=== PATIENT | female | born 1950 | race Caucasian/White ===

== ENCOUNTER → 2017-01-12 | Outpatient (CLI) | payer OTHER ==
[~2017-01-12] MED LIST: ATOR40TA16 PO; LISI10TA PO; LISI10TA3 PO; SITA1TAB2 PO; VITA100036 PO
[2017-01-12 09:16] LABS: BLOOD, URINE NEG (NEG); COMMENT (UR) CATH-CULT NOT IND; CULTURE IF INDICATED CATH CULTURE NOT IND; GLUCOSE,URINE NEG (NEG); HYALINE CAST, URINE 1 /lpf (RARE); KETONE, URINE NEG (NEG); MUCUS URINE FEW /lpf (OCC); NITRITE,URINE NEG (NEG); PH, URINE 5.5 (5.0-8.5); SQUAMOUS EPITHELIAL CELL URINE 1 /hpf (0-5); URINE COLOR YELLOW (YELLW/STRAW)
[2017-01-12 09:18] LABS: HEMATOCRIT 39.1 % (35.0-46.0); MEAN CELL VOLUME 86.6 FL (80.0-100.0); MEAN CORPUSCULAR HEMOGLOBIN 29.1 PG (27.0-34.0); MEAN CORPUSCULAR HGB CONC 33.6 % (32.0-36.0); PLATELET COUNT 256 TH/MM3 (150-450); RED BLOOD COUNT 4.51 MIL/MM3 (4.00-5.30); RED CELL DISTRIBUTION WIDTH 15.2 % (11.6-17.2); REVIEW FLAG FINAL; WHITE BLOOD COUNT 5.7 TH/MM3 (4.0-11.0)
[2017-01-12 09:19] LABS: APTT (PATIENT) 30.4 SEC (24.3-30.1); INTERNATIONAL NORMALIZED RATIO 0.9 RATIO; PROTHROMBIN TIME - PATIENT 10.4 SEC (9.8-11.6)
[2017-01-12 09:39] LABS: BICARBONATE 27.6 MEQ/L (21.0-32.0); POTASSIUM 3.5 MEQ/L (3.5-5.1)
--- NOTE | 2017-01-12 13:43 | EKG ---
Date Performed: 01/12/2017 Time Performed: 08:24:22 PTAGE: 66 years EKG: Baseline artifact present Sinus rhythm MARKED LEFT AXIS DEVIATION possible SEPTAL MYOCARDIAL INFARCTION, OF INDETERMINATE AGE ABNORMAL ECG NO PREVIOUS TRACING DOCTOR: Chintan Ferguson Interpretating Date/Time 01/12/2017 13:41:14
== END ==
LOC: CPRE 07:59
PROVIDERS: ATTEND Orthopaedic Surgery
DX: Z01.810 Encounter for preprocedural cardiovascular examination (principal); Z01.812 Encounter for preprocedural laboratory examination; M16.11 Unilateral primary osteoarthritis, right hip; M79.609 Pain in unspecified limb; R94.31 Abnormal electrocardiogram [ECG] [EKG]
CPT/HCPCS: 36415; 80048; 81001; 85027; 85610; 85730; 93005

== ENCOUNTER 2017-03-15 11:29 | Observation (INO) | payer OTHER ==
[~2017-03-15 11:29] MED LIST changes: +CHOL10008 PO; +FLUC200T2 PO; -LISI10TA3 PO; +PRIL20TA2 PO; -VITA100036 PO
[2017-03-15 15:03] VITALS: BP 155/84; PULSE 61; RESP 16; TEMP 97.7; O2SAT 98
[2017-03-15 16:20] VITALS: PULSE 71
--- NOTE | 2017-03-15 16:47 | HHI.HP ---
HPI Primary Care Physician No Primary Care Physician Chief Complaint Chest pain History of Present Illness This is a 66-year-old female that presents to ED in [place] to evaluate a chest discomfort. Patient states that she had been recently diagnosed with H. pylori after having a 53 pound weight loss over the last 5-6 months. She had an endoscopy last month after completing treatment for H. pylori. She was found to have a fungal infection in the esophagus and placed on fluconazole. States she has 4 days left of that treatment. She states that for several weeks it feels as if food would get stock when she was swallowing. More recently she has gone to eating soft foods and even that seems to get stuck. States she has to drink a lot of water to get the food to go down. She states she has sensation of food being stuck even when she has not eaten. States she has been burping a lot, belching a lot, and gags a lot for no apparent reason. However over the last 4 nights she had new symptoms. She states that for the last 4 nights at approximately 6:00 in the evening she would develop a tightness in the center of her chest. This would last 1 hour to 1-1/2 hours. Maybe a little short of breath and maybe a little nausea. No emesis. No diaphoresis. States that nothing to do with congestion. She had not eaten prior to this discomfort occurring. However it also felt as if she had food stuck. Her account services manager is Dr. Costa in [place]. Review of Systems General: Patient denies fevers, chills recent, and recent travel HEENT: Patient denies headache, sore throat, difficulty swallowing. Cardiovascular: Has the chest discomfort as mentioned above. Denies sensation of heart beating rapidly or irregularly. No syncope. Denies diaphoresis. Respiratory: Mild SOB. Denies inspirational chest discomfort. Denies coughing wheezing or hemoptysis. GI: Mild nausea. Patient denies vomiting, diarrhea, abdominal pain, bloody stools. Feels as if food gets stuck in her throat. Musculoskeletal: Patient denies joint pain or edema. Denies calf pain or edema. Neurovascular: Patient denies numbness, tingling, weakness in extremities. Denies headache. Endocrine: Denies polyuria and polydipsia. Hematologic: Denies easy bruising. Skin: Denies rash or itching. Past Family Social History Allergies: Coded Allergies: erythromycin base (Verified Allergy, Severe, THROAT CLOSES, 03/15/17) No Known Allergies (Unverified Adverse Reaction, Unknown, 03/15/17) Past Medical History Recently diagnosed with H. pylori and candidiasis of the esophagus. Also esophageal stricture. Diabetes and hypertension hour she states that medications were stopped about a week ago by PCP saying he does not think she needs any longer. Denies hyperlipidemia and CAD. Past Surgical History Recent endoscopy. Reported Medications Reported Meds & Active Scripts Active Reported Fluconazole 200 Mg Tab 200 Mg PO DAILY Prilosec (Omeprazole Magnesium) 20 Mg Tab 1 Tab PO DAILY Family History Denies family history of CAD. Social History Nonsmoker. Denies alcohol or illicit drugs. Physical Exam Vital Signs Vital Signs Date Time Temp Pulse Resp B/P (MAP) Pulse Ox O2 Delivery O2 Flow Rate FiO2 03/15/17 15:03 97.7 61 16 155/84 (107) 98 Physical Exam GENERAL: This is a well-nourished, well-developed patient, in no apparent distress. Patient speaks in clear complete sentences. Patient is pleasant. HEENT: Head is atraumatic and normocephalic. Neck is supple without lymphadenopathy and trachea is midline. No JVD or carotid bruits. CARDIOVASCULAR: Regular rate and rhythm without murmurs, gallops, or rubs. RESPIRATORY: Clear to auscultation. Breath sounds equal bilaterally. No wheezes , rales, or rhonchi. Chest wall is nontender. No use of accessory muscles. GASTROINTESTINAL: Abdomen is nontender, nondistended. Abdomen soft. No obvious pulsatile mass or bruit. No CVA tenderness. Strong femoral pulses bilaterally. Normal bowel sounds in all quadrants. MUSCULOSKELETAL: Patient is moving upper and lower extremities freely. No calf tenderness or edema, no Homans sign. Strong pulses in upper and lower extremities. NEUROLOGICAL: Patient is alert and oriented. Cranial nerves 2-12 are grossly intact. No focal deficits and speech is clear. SKIN: No rash and turgor is normal. Imaging Chest x-ray read by radiologist as nothing acute. Course Initial EKG is sinus rhythm with nonspecific inferolateral T-wave changes. Caprini VTE Risk Assessment Caprini VTE Risk Assessment: Mod/High Risk (score >= 2) Caprini Risk Assessment Model Point Value = 1 Point Value = 2 Point Value = 3 Point Value = 5 Age 41-60 Minor surgery BMI > 25 kg/m2 Swollen legs Varicose veins or History of unexplained or recurrent spontaneous Oral contraceptives or hormone replacement Sepsis (< 1 month) Serious lung disease, including pneumonia (< 1 month) Abnormal pulmonary function Acute myocardial infarction Congestive heart failure (< 1 month) History of inflammatory bowel disease Medical patient at bed rest Age 61-74 Arthroscopic surgery Major open surgery (> 45 min) Laparoscopic surgery (> 45 min) Malignancy Confined to bed (> 72 hours) Immobilizing plaster cast Central venous access Age >= 75 History of VTE Family history of VTE Factor V Leiden Prothrombin [id number] Lupus anticoagulant Anticardiolipin antibodies Elevated serum homocysteine Heparin-induced thrombocytopenia Other congenital or acquired thrombophilia Stroke (< 1 month) Elective arthroplasty Hip, pelvis, or leg fracture Acute spinal cord injury (< 1 month) Prophylaxis Regimen Total Risk Factor Score Risk Level Prophylaxis Regimen 0-1 Low Early ambulation 2 Moderate Order ONE of the following: *Sequential Compression Device (SCD) *Heparin 5000 units SQ BID 3-4 Higher Order ONE of the following medications: *Heparin 5000 units SQ TID *Enoxaparin/Lovenox 40 mg SQ daily (WT < 150 kg, CrCl > 30 mL/min) *Enoxaparin/Lovenox 30 mg SQ daily (WT < 150 kg, CrCl > 10-29 mL/min) *Enoxaparin/Lovenox 30 mg SQ BID (WT < 150 kg, CrCl > 30 mL/min) AND/OR *Sequential Compression Device (SCD) 5 or more Highest Order ONE of the following medications: *Heparin 5000 units SQ TID (Preferred with Epidurals) *Enoxaparin/Lovenox 40 mg SQ daily (WT < 150 kg, CrCl > 30 mL/min) *Enoxaparin/Lovenox 30 mg SQ daily (WT < 150 kg, CrCl > 10-29 mL/min) *Enoxaparin/Lovenox 30 mg SQ BID (WT < 150 kg, CrCl > 30 mL/min) AND *Sequential Compression Device (SCD) Assessment and Plan Assessment and Plan * Atypical chest pain: Patient has had first 2 sets of cardiac enzymes and EKGs for ruling out purposes. She is being seen by Dr. Jimenez cardiology and the chest pain center. Her symptoms appear to be more GI related. I discussed this patient with Dr. Bill who has accepted this patient. He is going to be consult and GI and cardiology. Patient is stable at this time. He is agreeable to this plan. Luis Samayoa Mar 15, 2017 16:47
[2017-03-15 21:19] VITALS: PULSE 60
[2017-03-15 21:45] VITALS: BP 155/67; PULSE 68; RESP 18; TEMP 97.8; O2SAT 98
[2017-03-15] MEDS ORDERED: NALOXONE HCL 0.4 MG/ML AMP IV PUSH PRN (21:45)
[2017-03-15] MEDS ORDERED: SODIUM CHLORIDE 0.9% FLUSH 10 ML FLUSH IV FLUSH PRN (21:45)
[2017-03-15] MEDS ORDERED: ACETAMINOPHEN 325 MG TAB PO PRN (21:45)
[2017-03-15] MEDS: HEPARIN SODIUM - SQ 10,000 UNITS/ML VIAL SQ SCH (22:00)
[2017-03-16] VITALS (10 sets, daily range): BP systolic 125–165; BP diastolic 59–84; PULSE 58–70; RESP 15–18; TEMP 97.8–98.4; O2SAT 97–99
[2017-03-16] MEDS: HEPARIN SODIUM - SQ 10,000 UNITS/ML VIAL SQ SCH ×3 (06:00→22:00)
[2017-03-16 07:44] LABS: AUTOMATED NEUTROPHIL # 5.1 TH/MM3 (1.8-7.7); BASOPHIL # 0.1 TH/MM3 (0-0.2); BASOPHIL % 0.8 % (0.0-2.0); EOSINOPHIL % 0.5 % (0.0-4.0); HEMATOCRIT 38.9 % (35.0-46.0); HEMO FLAGS DIFF FINAL; LYMPH % 16.3 % (9.0-44.0); LYMPHOCYTE # 1.1 TH/MM3 (1.0-4.8); MEAN CELL VOLUME 88.6 FL (80.0-100.0); MEAN CORPUSCULAR HEMOGLOBIN 30.2 PG (27.0-34.0); MONO % 8.7 % (0.0-8.0); NEUT % 73.7 % (16.0-70.0); PLATELET COUNT 227 TH/MM3 (150-450); RED BLOOD COUNT 4.39 MIL/MM3 (4.00-5.30); RED CELL DISTRIBUTION WIDTH 14.8 % (11.6-17.2); WHITE BLOOD COUNT 6.9 TH/MM3 (4.0-11.0)
--- NOTE | 2017-03-16 07:48 | PD.CONS ---
HPI History of Present Illness This is a 66 year old female with a hx of esophageal strictures, gastric ulcers , H. Pylori, and kailey esophagitis. She was having issues with dysphagia and underwent an EGD with Dilatation with Dr. Costa in November, which showed an esophageal stricture (S/P dilatation) and retained food in stomach. She then had a repeat on January 29 and was found to have stomach ulcers (S/P cauterization). She was told that her biopsies revealed H. Pylori and she completed treatment. She reports that she was unhappy with her care because she was only seeing the nurse practitioner and not the doctor and therefore went to [facility] for further evaluation. She states that they reviewed her records and told her she had esophageal candidiases and was given Diflucan 200mg po daily x 14 days. She reports that she has 4 more days left. She is also on Prilosec 20mg po daily. She went to [facility] yesterday for chest pain. She reports that for the past 4 days, she has been having anterior chest pain on the right side. She describes this as a pressure. This has come on at dinner time, but sometimes without food intake. She has associated bloating, belching. She did not take anything OTC. Eventually, the pain has subsided on it's own. She denies any nausea/vomiting, abdominal pain, bowel changes, constipation, diarrhea, melena, or hematochezia. She reports that she has not had any improvement since her dilatation. She continues to have issues with solids not wanting to go down. She cannot tell if its getting caught up high or lower in the esophagus. She is able to get the food down as long as she chews her food well and drinks lots of liquids. She also has early satiety and decreased appetite for the past 5 months. During this time she has lost 55 lbs. She has never had a colonoscopy, but states that she had the Morgan-guard test in November and reports that this was normal. She recently had US outpatient a few weeks ago ([facility]). She states that she also had a CT Scan of her chest about a month ago at [place]. (Jayla Reardon) PFSH Past Medical History GERD Esophageal stricture Kailey esophagitis H. Pylori DM Hx HTN Past Surgical History EGD Left hip replacement Hysterectomy 1976 (ReardonJayla) Coded Allergies: erythromycin base (Verified Allergy, Severe, THROAT CLOSES, 03/15/17) No Known Allergies (Unverified Allergy, Unknown, 03/15/17) Medications Allergies Coded Allergies Type Severity Reaction Last Updated Verified erythromycin base Allergy Severe THROAT CLOSES 03/15/17 Yes No Known Allergies Allergy Unknown 03/15/17 No Active Scripts Medications Dose Route/Sig Max Daily Dose Days Date Category Fluconazole 200 Mg Tab 200 Mg PO DAILY 03/15/17 Reported Prilosec (Omeprazole Magnesium) 20 Mg Tab 1 Tab PO DAILY 03/15/17 Reported Family History Mother had lung cancer. Maternal uncle had cancer of the blood Maternal GM had brain cancer Father had lung cancer Social History No tobacco, etoh, illicit drug use. (Jayla Reardon) Review of Systems Constitutional: COMPLAINS OF: Fatigue, DENIES: Weight loss, Change in appetite Cardiovascular: COMPLAINS OF: Chest pain Gastrointestinal: COMPLAINS OF: Difficulty Swallowing, Swelling of Abdomen, Heartburn, DENIES: Abdominal pain, Black stools, Bloody stools, Constipation, Diarrhea, Nausea, Vomiting, Hematemesis Musculoskeletal: DENIES: Joint pain Integumentary: DENIES: Abnormal pigmentation Hematologic/lymphatic: DENIES: Bruising Neurologic: DENIES: Headache Psychiatric: DENIES: Confusion (Jayla Reardon) GI Exam Vitals I&O Vital Signs Date Time Temp Pulse Resp B/P (MAP) Pulse Ox O2 Delivery O2 Flow Rate FiO2 03/16/17 07:19 70 03/16/17 05:29 98.2 59 18 143/67 (92) 97 03/16/17 03:25 60 03/16/17 00:58 98.0 62 18 125/59 (81) 99 03/16/17 00:27 58 03/15/17 21:45 97.8 68 18 155/67 (96) 98 03/15/17 21:19 60 03/15/17 16:20 71 03/15/17 15:03 97.7 61 16 155/84 (107) 98 Physical Examination HEENT: Normocephalic; atraumatic; no jaundice. CHEST: CTA CARDIAC: RRR ABDOMEN: Soft, nondistended, nontender; no hepatosplenomegaly; bowel sounds are present in all four quadrants. EXTREMITIES: No clubbing, cyanosis, or edema. SKIN: Normal; no rash; no jaundice. DEICER REPAIRER: No focal deficits; alert and oriented times three. (Jayla Reardon) Assessment and Plan Plan ASSESSMENT: - Atypical chest pain with dysphagia with hx of esophageal stricture. S/P EGD with Dilatation with Dr. Costa in November, which showed an esophageal stricture (S/P dilatation) and retained food in stomach. She then had a repeat on January 29 and was found to have stomach ulcers (S/P cauterization). She was told that her biopsies revealed H. Pylori and she completed treatment. She then switched her care to [facility] for further evaluation, as she did not feel that she had any improvement. Her tests and pathology were reviewed and she was told that she also had kailey esophagitis and was started on Diflucan 200mg po daily x 14 days. She has 4 doses left. - Recent Kailey Esophagitis. On #02/10 Diflucan 200mg po daily. - Recent H. Pylori infection. S/P Tx. - Early Satiety, anorexia, abnormal weight loss. 5 month hx of early satiety, She also has early satiety and decreased appetite for the past 5 months. During this time she has lost 55 lbs. She has never had a colonoscopy, but states that she had the Morgan-guard test in November and reports that this was normal. She recently had US outpatient a few weeks ago ([facility]). - GERD. PPI - Hx DM per attending. PLAN: - Plan for egd with possible dilatation today - Obtain consents - NPO - Protonix - Monitor labs - Supportive care - Further recommendations to follow based on results of above - Pt seen and examined by Dr. Hedrick and myself and this note is written on his behalf (Jayla Reardon) Physician Comments Patient seen and examined Agree with above Continue with current supportive care Monitor labs Plan for an EGD today (Chicho Meraz MD) Jayla Reardon Mar 16, 2017 07:48 Chicho Meraz MD Mar 16, 2017 17:28
[2017-03-16 08:10] LABS: ANION GAP 11 MEQ/L (5-15); AST (GOT) 23 U/L (15-37); BICARBONATE 26.5 MEQ/L (21.0-32.0); BLOOD UREA NITROGEN 9 MG/DL (7-18); CHLORIDE 101 MEQ/L (98-107); GLOMERULAR FILTRATION RATE 76 ML/MIN (>89); POTASSIUM 3.8 MEQ/L (3.5-5.1); SODIUM (NA) 138 MEQ/L (136-145)
[2017-03-16 08:18] LABS: ALKALINE PHOSPHATASE 61 U/L (45-117); ALT (GPT) 20 U/L (10-53)
[2017-03-16] MEDS: SODIUM CHLORIDE 0.9% FLUSH 10 ML FLUSH IV FLUSH SCH ×2 (08:29→21:00)
[2017-03-16] MEDS ORDERED: SENNOSIDES 8.6 MG TAB PO PRN (08:30)
[2017-03-16] MEDS ORDERED: ACETAMINOPHEN 325 MG TAB PO PRN (08:30)
[2017-03-16] MEDS ORDERED: ONDANSETRON HCL 4 MG/2 ML VIAL IVP PRN (08:30)
[2017-03-16] MEDS ORDERED: BISACODYL 10 MG SUPP RECTAL PRN (08:30)
[2017-03-16] MEDS ORDERED: ACETAMINOPHEN/HYDROcodone 325 MG/5 MG TAB PO PRN (08:30)
[2017-03-16] MEDS ORDERED: MAGNESIUM HYDROXIDE SUSP 30 ML CUP PO PRN (08:30)
[2017-03-16] MEDS: DOCUSATE SODIUM 50 MG/SENNA 8.6 MG TAB PO SCH ×2 (08:33→21:00)
[2017-03-16] MEDS: SODIUM CHLOR 0.9% 1000 ML INJ 1,000 ML IV SCH ×2 (08:42→19:00)
[2017-03-16] MEDS ORDERED: NON-FORMULARY DRUG (Omeprazole Magnesium (Prilosec) 1 TAB) PO SCH (09:00)
[2017-03-16] MEDS: PANTOPRAZOLE SOD 40 MG DELAYED RELEASE TAB PO SCH (09:00)
[2017-03-16] MEDS ORDERED: PANTOPRAZOLE SOD 20 MG DELAYED RELEASE TAB PO SCH (09:00)
[2017-03-16] MEDS ORDERED: SODIUM CHLORID 0.9% 500 ML IV PRN (15:45)
[2017-03-16] MEDS ORDERED: POVIDONE IODINE 5% (ANTISEPSIS KIT) 4 APPLICATIONS EACH NARE PRN (15:45)
[2017-03-16] MEDS ORDERED: LACTATED RINGER'S 1000 ML IV PRN (15:45)
[2017-03-16] MEDS ORDERED: METOPROLOL TARTRATE 25 MG TAB PO PRN (15:45)
[2017-03-16] MEDS ORDERED: CHLORHEXIDINE GLUCONATE 2 % 1 PACK (2 CLOTHS) TOPICAL PRN (15:45)
--- NOTE | 2017-03-16 17:10 | PD.PROCEDR ---
GI Procedure PROCEDURE PERFORMED EGD with biopsy INDICATION FOR PROCEDURE Atypical chest pain, dysphagia, anorexia, reflux PROCEDURE: The procedure, risks and benefits were discussed with Ms. Flores and informed consent was obtained. Anesthesia sedated her with Diprivan. She was placed in the left lateral decubitus position. EGD: The Pentax videoscope was introduced through the oropharynx and advanced to the second portion of the duodenum under direct visualization. Retroflexion was performed in the stomach. FINDINGS: Esophagus this appeared to be unremarkable and within normal limits random biopsies were taken from the distal esophagus for further evaluation The stomach this too appeared to be unremarkable and within normal limits The duodenum this too appeared to be unremarkable and within normal limits ESTIMATED BLOOD LOSS: none SPECIMENS REMOVED: Esophageal biopsies COMPLICATIONS: None IMPRESSION: Normal EGD PLAN: Await biopsy Recommend barium swallow if negative we will proceed with emptying scan Chicho Meraz MD Mar 16, 2017 17:10
--- NOTE | 2017-03-16 17:24 | HHI.PR ---
Subjective Remarks Patient going for EGD today Currently no chest pain Objective Vitals Vital Signs Date Time Temp Pulse Resp B/P (MAP) Pulse Ox O2 Delivery O2 Flow Rate FiO2 03/16/17 17:00 78 16 148/70 (96) 97 03/16/17 16:50 97.5 86 16 162/77 (105) 97 03/16/17 15:14 98.4 69 18 154/84 (107) 99 03/16/17 11:27 97.9 66 18 165/74 (104) 98 03/16/17 08:01 98.1 65 18 163/76 (105) 99 03/16/17 07:19 70 03/16/17 05:29 98.2 59 18 143/67 (92) 97 03/16/17 03:25 60 03/16/17 00:58 98.0 62 18 125/59 (81) 99 03/16/17 00:27 58 03/15/17 21:45 97.8 68 18 155/67 (96) 98 03/15/17 21:19 60 I/O 03/15/17 03/15/17 03/15/17 03/16/17 03/16/17 03/16/17 07:00 15:00 23:00 07:00 15:00 23:00 Intake Total 100 ml Balance 100 ml Other 100 ml # Voids 3 Result Diagram: 03/16/1771903/16/17719 Objective Remarks GENERAL: This is a well-nourished, well-developed patient, in no apparent distress. SKIN: No rashes, warm and dry HEAD: Atraumatic. Normocephalic. EYES: Pupils equal round and reactive. Extraocular motions intact. No scleral icterus. ENT: Nose without bleeding, or drainage, Airway patent. NECK: Trachea midline. Supple CARDIOVASCULAR: Regular rate and rhythm without murmurs, gallops, or rubs. RESPIRATORY: Fair air entry bilaterally. No wheezes, rales, or rhonchi. GASTROINTESTINAL: Abdomen soft, non-tender, nondistended. Positive bowel sounds MUSCULOSKELETAL: Extremities without clubbing, cyanosis, or edema. Pedal pulses appreciated NEUROLOGICAL: Awake and alert. Moves all extremity. Normal speech.no focal neurological deficit A/P Assessment and Plan Atypical chest pain most likely GI source Negative cardiac enzymes, appreciate GI consultation going for EGD today, further recommendation per GI Has a history of esophageal candidiasis in the past. Patient had a history of dysphagia and underwent an EGD with Dilatation with Dr. Costa in November, which showed an esophageal stricture (S/P dilatation) and retained food in stomach. She then had a repeat on January 29 and was found to have stomach ulcers (S/P cauterization). She was told that her biopsies revealed H. Pylori and she completed treatment. After that patient went to [facility] for further evaluation. She states that they reviewed her records and told her she had esophageal candidiases and was given Diflucan 200mg po daily x 14 days. Adam Choudhury MD Mar 16, 2017 17:24
[2017-03-17] VITALS (8 sets, daily range): BP systolic 143–156; BP diastolic 70–85; PULSE 56–74; RESP 18–20; TEMP 95.7–97.9; O2SAT 94–100
[2017-03-17] MEDS: SODIUM CHLOR 0.9% 1000 ML INJ 1,000 ML IV SCH ×2 (05:00→17:44)
[2017-03-17] MEDS: HEPARIN SODIUM - SQ 10,000 UNITS/ML VIAL SQ SCH ×3 (05:41→21:26)
[2017-03-17 05:45] LABS: AUTOMATED NEUTROPHIL # 2.8 TH/MM3 (1.8-7.7); BASOPHIL % 0.7 % (0.0-2.0); EOSINOPHIL # 0.1 TH/MM3 (0-0.4); EOSINOPHIL % 1.3 % (0.0-4.0); HEMATOCRIT 35.4 % (35.0-46.0); HEMO FLAGS DIFF FINAL; LYMPH % 32.9 % (9.0-44.0); LYMPHOCYTE # 1.7 TH/MM3 (1.0-4.8); MEAN CELL VOLUME 88.6 FL (80.0-100.0); MEAN CORPUSCULAR HGB CONC 32.7 % (32.0-36.0); MONO % 12.1 % (0.0-8.0); PLATELET COUNT 213 TH/MM3 (150-450); RED BLOOD COUNT 3.99 MIL/MM3 (4.00-5.30); RED CELL DISTRIBUTION WIDTH 15.4 % (11.6-17.2); WHITE BLOOD COUNT 5.3 TH/MM3 (4.0-11.0)
[2017-03-17 06:54] LABS: ALKALINE PHOSPHATASE 47 U/L (45-117); ALT (GPT) 15 U/L (10-53); ANION GAP 6 MEQ/L (5-15); AST (GOT) 18 U/L (15-37); BICARBONATE 29.2 MEQ/L (21.0-32.0); BLOOD UREA NITROGEN 11 MG/DL (7-18); CHLORIDE 105 MEQ/L (98-107); GLOMERULAR FILTRATION RATE 76 ML/MIN (>89); POTASSIUM 3.8 MEQ/L (3.5-5.1); SODIUM (NA) 140 MEQ/L (136-145); TOTAL BILIRUBIN ADULT 0.6 MG/DL (0.2-1.0)
[2017-03-17] MEDS: DOCUSATE SODIUM 50 MG/SENNA 8.6 MG TAB PO SCH ×2 (08:38→21:00)
[2017-03-17] MEDS: PANTOPRAZOLE SOD 40 MG DELAYED RELEASE TAB PO SCH (08:38)
[2017-03-17] MEDS ORDERED: REGADENOSON INJ 0.4 MG/5 ML SYR ONE (09:30)
--- NOTE | 2017-03-17 10:50 | RADRPT ---
EXAM DATE/TIME: 03/17/2017 09:03 [facility] COMPARISON: No previous studies available for comparison. INDICATIONS : Midchest pain for 1 day. Angina. DOSE: 25.6 mCi Tc99m Myoview at stress. 8.3 mCi Tc99m Myoview at rest. 0.4 mg Lexiscan STRESS SYMPTOMS: Chest pressure, shortness of breath, headache. EJECTION FRACTION: > 70% MEDICAL HISTORY : Diabetes mellitus type 2. Hypertension. SURGICAL HISTORY : Hysterectomy. Left hip surgery. ENCOUNTER: Initial ACUITY: 1 day PAIN SCALE: 3/10 LOCATION: Midsternal chest TECHNIQUE: The patient underwent pharmacologic stress with infusion of prescribed dose. Continuous ECG tracing was monitored during stress. Gated SPECT imaging was performed after stress and conventional SPECT i maging was performed at rest. The examination was performed on a SPECT/CT scanner, both attenuation and non-corrected datasets were reviewed. FINDINGS: DISTRIBUTION: The maximum perfused segment at stress is in the inferior wall. PERFUSION STUDY: The pattern of perfusion at stress is within normal limits. GATED STUDY: There is intact wall motion and thickening without hypokinetic or dyskinetic segments. CONCLUSION: Myocardial perfusion study within normal limits. RISK CATEGORY: 1- Low Risk. Silas Chawla MD on March 17, 2017 at 10:46 Board Certified Radiologist. This report was verified electronically.
[2017-03-17] MEDS: SODIUM CHLORIDE 0.9% FLUSH 10 ML FLUSH IV FLUSH SCH ×2 (11:00→21:00)
--- NOTE | 2017-03-17 11:19 | RADRPT ---
EXAM DATE/TIME: 03/17/2017 10:29 [facility] COMPARISON: No previous studies available for comparison. INDICATIONS : Difficulty swallowing. Patient has sensation of food being stuck in throat while eating FLUORO TIME: 1.1 minutes IMAGE COUNT: 25 CONTRAST: 1. E-Z HD Barium Sulfate (98% w/w) Liquid E-Z Paque Barium Sulfate (60% w/v, 41% w.w) MEDICAL HISTORY : None. SURGICAL HISTORY : None. ENCOUNTER: Initial ACUITY: 1 week PAIN SCORE: 0/10 LOCATION: Esophagus FINDINGS: Air-contrast views of the hypopharynx demonstrate a normal mucosal surface without filling defect. R apid sequence images of the hypopharynx and cervical esophagus during the passage of barium demonstra te a normal swallowing function. No evidence of aspiration. Multiple endplate osteophytes anteriorly of the cervical spine result in mild mass effect on the cervical esophagus Multiphasic examination o f the esophagus demonstrates no esophageal fold thickening, ulceration, or filling defect. The gastr oesophageal junction is normal in configuration without evidence of hiatal hernia. CONCLUSION: Degenerative findings of the cervical spine with osteophytes resulting in mild mass effect on the pos terior cervical esophagus. Barium swallow otherwise within normal limits. Silas Chawla MD on March 17, 2017 at 11:15 Board Certified Radiologist. This report was verified electronically.
--- NOTE | 2017-03-17 12:42 | HHI.PR ---
Subjective Remarks Patient reported passing flatus and having a firm stool bowel movement today She reported losing 60 pounds over last 6 months Objective Vitals Vital Signs Date Time Temp Pulse Resp B/P (MAP) Pulse Ox O2 Delivery O2 Flow Rate FiO2 03/17/17 11:45 95.7 74 20 154/72 (99) 99 03/17/17 04:15 56 03/17/17 04:05 97.9 58 153/70 (97) 100 03/16/17 23:45 97.8 62 16 146/70 (95) 99 03/16/17 19:41 97.9 65 15 129/69 (89) 98 03/16/17 17:00 78 16 148/70 (96) 97 03/16/17 16:50 97.5 86 16 162/77 (105) 97 03/16/17 15:14 98.4 69 18 154/84 (107) 99 I/O 03/16/17 03/16/17 03/16/17 03/17/17 03/17/17 03/17/17 07:00 15:00 23:00 07:00 15:00 23:00 Intake Total 100 ml Balance 100 ml Other 100 ml # Voids 3 1 Result Diagram: 03/17/17 03403/17/17 034 Objective Remarks GENERAL: This is a well-nourished, well-developed patient, in no apparent distress. SKIN: No rashes, warm and dry HEAD: Atraumatic. Normocephalic. EYES: Pupils equal round and reactive. Extraocular motions intact. No scleral icterus. ENT: Nose without bleeding, or drainage, Airway patent. NECK: Trachea midline. Supple CARDIOVASCULAR: Regular rate and rhythm without murmurs, gallops, or rubs. RESPIRATORY: Fair air entry bilaterally. No wheezes, rales, or rhonchi. GASTROINTESTINAL: Abdomen soft, non-tender, nondistended. Positive bowel sounds MUSCULOSKELETAL: Extremities without clubbing, cyanosis, or edema. Pedal pulses appreciated NEUROLOGICAL: Awake and alert. Moves all extremity. Normal speech.no focal neurological deficit A/P Assessment and Plan Atypical chest pain rule out cardiogenic versus GI source Patient had a history of dysphagia and underwent an EGD with Dilatation with Dr. Costa in November, which showed an esophageal stricture (S/P dilatation) and retained food in stomach. She then had a repeat on January 29 and was found to have stomach ulcers (S/P cauterization). She was told that her biopsies revealed H. Pylori and she completed treatment. After that patient went to [facility] for further evaluation. She states that they reviewed her records and told her she had esophageal candidiases and was given Diflucan 200mg po daily x 14 days. Negative cardiac enzymes, appreciate GI consultation going for EGD , patient went today 03/17 for barium swallow however patient refused to do empty studying as recommended I GI Has a history of esophageal candidiasis in the past. Nuclear stress test today came back negative Further recommendation per Dr. Sandy Discharge Planning When cleared by Adam Rae MD Mar 17, 2017 12:42
--- NOTE | 2017-03-17 16:25 | HHI.GIFU ---
Subjective Remarks Pt sitting up in bed, family at bedside. Still with burping and "hacking." No abd pain or vomiting. Per RN pt refusing GES, and burping and having quite loud heaving noises audible down the hallway. During my exam there was occasional throat clearing. (Beth Rushing) Objective Vitals I&O Vital Signs Date Time Temp Pulse Resp B/P (MAP) Pulse Ox O2 Delivery O2 Flow Rate FiO2 03/17/17 15:27 96.4 65 20 156/85 (108) 94 03/17/17 11:45 95.7 74 20 154/72 (99) 99 03/17/17 04:15 56 03/17/17 04:05 97.9 58 153/70 (97) 100 03/16/17 23:45 97.8 62 16 146/70 (95) 99 03/16/17 19:41 97.9 65 15 129/69 (89) 98 03/16/17 17:00 78 16 148/70 (96) 97 03/16/17 16:50 97.5 86 16 162/77 (105) 97 I/O 03/16/17 03/16/17 03/16/17 03/17/17 03/17/17 03/17/17 07:00 15:00 23:00 07:00 15:00 23:00 Intake Total 100 ml Balance 100 ml Other 100 ml # Voids 3 1 Laboratory Laboratory Tests Test 03/17/17 03:42 White Blood Count 5.3 Red Blood Count 3.99 Hemoglobin 11.6 Hematocrit 35.4 Mean Corpuscular Volume 88.6 Mean Corpuscular Hemoglobin 29.0 Mean Corpuscular Hemoglobin Concent 32.7 Red Cell Distribution Width 15.4 Platelet Count 213 Mean Platelet Volume 8.7 Neutrophils (%) (Auto) 53.0 Lymphocytes (%) (Auto) 32.9 Monocytes (%) (Auto) 12.1 Eosinophils (%) (Auto) 1.3 Basophils (%) (Auto) 0.7 Neutrophils # (Auto) 2.8 Lymphocytes # (Auto) 1.7 Monocytes # (Auto) 0.6 Eosinophils # (Auto) 0.1 Basophils # (Auto) 0.0 CBC Comment DIFF FINAL Differential Comment Blood Urea Nitrogen 11 Creatinine 0.76 Random Glucose 72 Total Protein 6.4 Albumin 3.3 Calcium Level 9.2 Alkaline Phosphatase 47 Aspartate Amino Transf (AST/SGOT) 18 Alanine Aminotransferase (ALT/SGPT) 15 Total Bilirubin 0.6 Sodium Level 140 Potassium Level 3.8 Chloride Level 105 Carbon Dioxide Level 29.2 Anion Gap 6 Estimat Glomerular Filtration Rate 76 Imaging Last Impressions Myocardial Perfusion Scan Nuc Med 03/17/17 0700 Signed Impressions: Service Date/Time: Friday, March 17, 2017 09:03 - CONCLUSION: Myocardial perfusion study within normal limits. RISK CATEGORY: 1- Low Risk. Silas Chawla MD Barium Swallow X-Ray 03/17/17 0000 Signed Impressions: Service Date/Time: Friday, March 17, 2017 10:29 - CONCLUSION: Degenerative findings of the cervical spine with osteophytes resulting in mild mass effect on the posterior cervical esophagus. Barium swallow otherwise within normal limits. Silas Chawla MD Physical Exam HEENT: PERRL; normocephalic; atraumatic; no jaundice. CHEST: CTA CARDIAC: RRR ABDOMEN: Soft, nondistended, nontender; no hepatosplenomegaly; bowel sounds are present in all four quadrants. EXTREMITIES: No clubbing, cyanosis; mild RLE edema. SKIN: Normal; no rash; no jaundice. VOLUMETRIC WEIGHER: No focal deficits; alert and oriented times three. (Beth Rushing [facility]) Assessment and Plan Plan ASSESSMENT: - Atypical chest pain with dysphagia with hx of esophageal stricture. S/P EGD with Dilatation with Dr. Costa in November, which showed an esophageal stricture (S/P dilatation) and retained food in stomach. She then had a repeat on January 29 and was found to have stomach ulcers (S/P cauterization). She was told that her biopsies revealed H. Pylori and she completed treatment. She then switched her care to [facility] for further evaluation, as she did not feel that she had any improvement. Her tests and pathology were reviewed and she was told that she also had canelo esophagitis and was started on Diflucan 200mg po daily x 14 days. She has 4 doses left. s/p EGD that was normal. Ba swallow as above. pt initially refusing GES b/c she does not want to wait4 hours with nothign to drink; c/o dry mouth and must always have sips water. d/w pt and her family at length. - Recent Canelo Esophagitis. On #02/10 Diflucan 200mg po daily. - Recent H. Pylori infection. S/P Tx. - Early Satiety, anorexia, abnormal weight loss. 5 month hx of early satiety, She also has early satiety and decreased appetite for the past 5 months. During this time she has lost 55 lbs. She has never had a colonoscopy, but states that she had the [place]-guard test in November and reports that this was normal. She recently had US outpatient a few weeks ago ([facility]). - GERD. PPI - Hx DM per attending. PLAN: - GES with request for pt to have either liquid protocol or sips water or ice chips; d/w radiology, nuke med not available today - trial GI cocktail for coughing, burping, and abd discomfort - trial low residue diet - await path - Protonix - Monitor labs - Supportive care - Further recommendations to follow based on results of above - Pt seen and examined by Dr. Hedrick and myself and this note is written on his behalf (Beth Rushing) Physician Comments Patient seen and examined Agree with above Continue with current supportive care Monitor labs Patient will need an emptying scan to further evaluate her symptoms (Chicho Meraz MD) Beth Rushing Mar 17, 2017 16:25 Chicho Meraz MD Mar 17, 2017 20:13
[2017-03-17] MEDS: NYSTAT/DIPHENHY/LIDO MOUTHWASH (Adult) 120ML SWISH-SWAL PRN (17:44)
[2017-03-18] VITALS (7 sets, daily range): BP systolic 145–168; BP diastolic 75–95; PULSE 57–81; RESP 18–20; TEMP 96.2–98.2; O2SAT 95–99
[2017-03-18] MEDS: SODIUM CHLOR 0.9% 1000 ML INJ 1,000 ML IV SCH ×3 (01:00→21:00)
[2017-03-18] MEDS: HEPARIN SODIUM - SQ 10,000 UNITS/ML VIAL SQ SCH ×3 (06:29→22:00)
[2017-03-18] MEDS: PANTOPRAZOLE SOD 40 MG DELAYED RELEASE TAB PO SCH (09:00)
[2017-03-18] MEDS: DOCUSATE SODIUM 50 MG/SENNA 8.6 MG TAB PO SCH ×2 (09:00→21:00)
[2017-03-18] MEDS: SODIUM CHLORIDE 0.9% FLUSH 10 ML FLUSH IV FLUSH SCH ×2 (09:00→21:00)
--- NOTE | 2017-03-18 13:03 | HHI.GIFU ---
Subjective Remarks patient is eating lunch, still with main lots of burping and poor appetite, had lengthy discussion with patient and family in regards to tx options if she indeed does have gastroparesis. (Araceli Tran) Objective Vitals I&O Vital Signs Date Time Temp Pulse Resp B/P (MAP) Pulse Ox O2 Delivery O2 Flow Rate FiO2 03/18/17 12:11 98.0 63 20 168/90 (116) 95 03/18/17 08:05 98.2 76 18 163/95 (117) 96 03/18/17 05:22 96.2 18 145/75 (98) 99 03/17/17 23:55 97.8 69 18 153/78 (103) 96 03/17/17 19:35 67 20 143/75 (97) 97 03/17/17 15:27 96.4 65 20 156/85 (108) 94 03/17/17 15:22 70 I/O 03/17/17 03/17/17 03/17/17 03/18/17 03/18/17 03/18/17 07:00 15:00 23:00 07:00 15:00 23:00 Intake Total 480 ml Balance 480 ml Intake Oral 480 ml # Voids 6 Imaging Last Impressions Myocardial Perfusion Scan Nuc Med 03/17/17 0700 Signed Impressions: Service Date/Time: Friday, March 17, 2017 09:03 - CONCLUSION: Myocardial perfusion study within normal limits. RISK CATEGORY: 1- Low Risk. Silas Chawla MD Barium Swallow X-Ray 03/17/17 0000 Signed Impressions: Service Date/Time: Friday, March 17, 2017 10:29 - CONCLUSION: Degenerative findings of the cervical spine with osteophytes resulting in mild mass effect on the posterior cervical esophagus. Barium swallow otherwise within normal limits. Silas Chawla MD Physical Exam HEENT: PERRL; normocephalic; atraumatic; no jaundice. CHEST: CTA CARDIAC: RRR ABDOMEN: Soft, nondistended, nontender; no hepatosplenomegaly; bowel sounds are present in all four quadrants. EXTREMITIES: No clubbing, cyanosis; mild RLE edema. SKIN: Normal; no rash; no jaundice. ELECTRICIAN MASTER: No focal deficits; alert and oriented times three. (Araceli Tran) Assessment and Plan Plan ASSESSMENT: - Atypical chest pain with dysphagia with hx of esophageal stricture. S/P EGD with Dilatation with Dr. Costa in November, which showed an esophageal stricture (S/P dilatation) and retained food in stomach. She then had a repeat on January 29 and was found to have stomach ulcers (S/P cauterization). She was told that her biopsies revealed H. Pylori and she completed treatment. She then switched her care to [facility] for further evaluation, as she did not feel that she had any improvement. Her tests and pathology were reviewed and she was told that she also had canelo esophagitis and was started on Diflucan 200mg po daily x 14 days. She has 4 doses left. s/p EGD (03/16/17) that was normal. Ba swallow as above. GES planned for tomorrow - Recent Canelo Esophagitis. On #02/10 Diflucan 200mg po daily. - Recent H. Pylori infection. S/P Tx. - Early Satiety, anorexia, abnormal weight loss. 5 month hx of early satiety, She also has early satiety and decreased appetite for the past 5 months. During this time she has lost 55 lbs. She has never had a colonoscopy, but states that she had the [place]-guard test in November and reports that this was normal. She recently had US outpatient a few weeks ago ([facility]). - GERD. PPI - Hx DM per attending. PLAN: - GES with request for pt to have either liquid protocol or sips water or ice chips, this planned for tomorrow - await path - Protonix - Monitor labs - Supportive care - Further recommendations to follow based on results of above - Pt seen and examined by Dr. Hedrick and myself and this note is written on his behalf (Araceli Tran) Physician Comments Patient seen and examined Agree with above Continue with current supportive care Monitor labs Proceed with that emptying scan tomorrow (Chicho Meraz MD) Araceli Tran Mar 18, 2017 13:03 Chicho Meraz MD Mar 18, 2017 15:21
--- NOTE | 2017-03-18 14:13 | HHI.PR ---
Subjective Remarks Patient still complaining of indigestion and burping Even with few bites of cottage cheese and couple pieces of apple Plan to do emptying study tomorrow, the patient is concerned about having dry mouth Objective Vitals Vital Signs Date Time Temp Pulse Resp B/P (MAP) Pulse Ox O2 Delivery O2 Flow Rate FiO2 03/18/17 12:11 98.0 63 20 168/90 (116) 95 03/18/17 08:05 98.2 76 18 163/95 (117) 96 03/18/17 05:22 96.2 18 145/75 (98) 99 03/17/17 23:55 97.8 69 18 153/78 (103) 96 03/17/17 19:35 67 20 143/75 (97) 97 03/17/17 15:27 96.4 65 20 156/85 (108) 94 03/17/17 15:22 70 I/O 03/17/17 03/17/17 03/17/17 03/18/17 03/18/17 03/18/17 07:00 15:00 23:00 07:00 15:00 23:00 Intake Total 480 ml Balance 480 ml Intake Oral 480 ml # Voids 6 Result Diagram: 03/17/17 0342 03/17/17 0342 Objective Remarks GENERAL: This is a well-nourished, well-developed patient, in no apparent distress. SKIN: No rashes, warm and dry HEAD: Atraumatic. Normocephalic. EYES: Pupils equal round and reactive. Extraocular motions intact. No scleral icterus. ENT: Nose without bleeding, or drainage, Airway patent. NECK: Trachea midline. Supple CARDIOVASCULAR: Regular rate and rhythm without murmurs, gallops, or rubs. RESPIRATORY: Fair air entry bilaterally. No wheezes, rales, or rhonchi. GASTROINTESTINAL: Abdomen soft, non-tender, nondistended. Positive bowel sounds MUSCULOSKELETAL: Extremities without clubbing, cyanosis, or edema. Pedal pulses appreciated NEUROLOGICAL: Awake and alert. Moves all extremity. Normal speech.no focal neurological deficit A/P Assessment and Plan Atypical chest pain rule out cardiogenic versus GI source Patient had a history of dysphagia and underwent an EGD with Dilatation with Dr. Costa in November, which showed an esophageal stricture (S/P dilatation) and retained food in stomach. She then had a repeat on January 29 and was found to have stomach ulcers (S/P cauterization). She was told that her biopsies revealed H. Pylori and she completed treatment. After that patient went to [facility] for further evaluation. She states that they reviewed her records and told her she had esophageal candidiases and was given Diflucan 200mg po daily x 14 days. Negative cardiac enzymes, appreciate GI consultation going for EGD , patient went today 03/17 for barium swallow however patient refused to do empty studying as recommended I GI Has a history of esophageal candidiasis in the past. Nuclear stress test today came back negative Barium swallow no significant finding except degenerative disease in the cervical spine causing mild mass effect on the esophagus otherwise negative Plan for emptying study tomorrow Further recommendation per Dr. Sandy Discharge Planning When cleared by Adam Rae MD Mar 18, 2017 14:13
[2017-03-18] MEDS: NYSTAT/DIPHENHY/LIDO MOUTHWASH (Adult) 120ML SWISH-SWAL PRN (22:11)
[2017-03-19 03:59] VITALS: BP 161/77; PULSE 54; RESP 18; TEMP 98.7; O2SAT 98
[2017-03-19 04:54] VITALS: PULSE 48
[2017-03-19] MEDS: HEPARIN SODIUM - SQ 10,000 UNITS/ML VIAL SQ SCH (06:00)
[2017-03-19 07:36] VITALS: BP 184/78; PULSE 59; RESP 20; TEMP 98; O2SAT 100
[2017-03-19 08:00] VITALS: PULSE 62
[2017-03-19] MEDS: SODIUM CHLORIDE 0.9% FLUSH 10 ML FLUSH IV FLUSH SCH (09:00)
[2017-03-19] MEDS: DOCUSATE SODIUM 50 MG/SENNA 8.6 MG TAB PO SCH (09:00)
--- NOTE | 2017-03-19 09:14 | HHI.GIFU ---
Subjective Remarks Sitting on edge of bed. Reports that she had 12 hours of belching and discomfort yesterday. Did have some relief with magic mouthwash. Going for GES soon. Anxious about having to lay flat for the test. No n/v. No abdominal pain. (Jayla Reardon) Objective Vitals I&O Vital Signs Date Time Temp Pulse Resp B/P (MAP) Pulse Ox O2 Delivery O2 Flow Rate FiO2 03/19/17 07:36 98.0 59 20 184/78 (113) 100 03/19/17 04:54 48 03/19/17 03:59 98.7 54 18 161/77 (105) 98 03/18/17 23:15 98.1 57 18 165/80 (108) 98 03/18/17 16:39 98.2 66 20 163/77 (105) 96 03/18/17 12:42 81 03/18/17 12:11 98.0 63 20 168/90 (116) 95 I/O 03/18/17 03/18/17 03/18/17 03/19/17 03/19/17 03/19/17 07:00 15:00 23:00 07:00 15:00 23:00 Output Total 300 ml Balance -300 ml Output Urine Total 300 ml Laboratory Last Impressions Myocardial Perfusion Scan Nuc Med 03/17/17 0700 Signed Impressions: Service Date/Time: Friday, March 17, 2017 09:03 - CONCLUSION: Myocardial perfusion study within normal limits. RISK CATEGORY: 1- Low Risk. Silas Chawla MD Barium Swallow X-Ray 03/17/17 0000 Signed Impressions: Service Date/Time: Friday, March 17, 2017 10:29 - CONCLUSION: Degenerative findings of the cervical spine with osteophytes resulting in mild mass effect on the posterior cervical esophagus. Barium swallow otherwise within normal limits. Silas Chawla MD Physical Exam HEENT: PERRL; normocephalic; atraumatic; no jaundice. CHEST: CTA CARDIAC: RRR ABDOMEN: Soft, nondistended, nontender; no hepatosplenomegaly; bowel sounds are present in all four quadrants. EXTREMITIES: No clubbing, cyanosis; mild RLE edema. SKIN: Normal; no rash; no jaundice. COAL SAMPLER: No focal deficits; alert and oriented times three. (Jayla Reardon) Assessment and Plan Plan ASSESSMENT: - Atypical chest pain with dysphagia with hx of esophageal stricture. S/P EGD with Dilatation with Dr. Costa in November, which showed an esophageal stricture (S/P dilatation) and retained food in stomach. She then had a repeat on January 29 and was found to have stomach ulcers (S/P cauterization). She was told that her biopsies revealed H. Pylori and she completed treatment. She then switched her care to [facility] for further evaluation, as she did not feel that she had any improvement. Her tests and pathology were reviewed and she was told that she also had canelo esophagitis and was started on Diflucan 200mg po daily x 14 days. S/P EGD (03/16/17)---> normal EGD. Pathology pending. S/P Barium Swallow (03/17/17)--> Degenerative findings of the cervical spine with osteophytes resulting in mild mass effect on the posterior cervical esophagus. Barium swallow otherwise within normal limits. Not having dysphagia currently. - Belching. Reports 12 hours of belching/discomfort yesterday, relief with magic mouthwash. Going for GES today. - Recent Canelo Esophagitis. S/P Diflucan - Recent H. Pylori infection. S/P Tx. - Early Satiety, anorexia, abnormal weight loss. 5 month hx of early satiety, She also has early satiety and decreased appetite for the past 5 months. During this time she has lost 55 lbs. She has never had a colonoscopy, but states that she had the [place]-guard test in November and reports that this was normal. She recently had US outpatient a few weeks ago ([facility]). GES today. - GERD. PPI - Hx DM per attending. PLAN: - NPO for procedure - Await pathology - Cont. PPI - Trial of Reglan after GES - Supportive care - Further recommendations to follow based on results of above - Pt seen and examined by Dr. Machuca and myself and this note is written on his behalf (Jayla Reardon) Physician Comments Seen and examined with JUDSON, GES showed gastroparesis responsive to Reglan. Started on reglan, side effects discussed with pt. and at the bedside. Dc home with gi fu in 02 weeks. thank you (Sven,Jayla Marks Mar 19, 2017 09:14 Desirae Machuca MD Mar 19, 2017 15:15
[2017-03-19] MEDS ORDERED: LORazepam 2 MG/ML VIAL IV ONE (09:30)
[2017-03-19] MEDS ORDERED: METOCLOPRAMIDE HCL 10 MG/2 ML VIAL ONE (10:36)
--- NOTE | 2017-03-19 11:43 | RADRPT ---
EXAM DATE/TIME: 03/19/2017 09:06 [place] COMPARISON: No previous studies available for comparison. INDICATIONS : Nausea and abodminal pain. DOSE: 1.0 mCi Tc99m Sulfur Colloid Labeled Whole egg PO MEDICATONS: 1.) 5 mg Reglan IV at minutes IMAGIN hrs MEDICAL HISTORY : Hypertension. Diabetes mellitus type 2. Gastroesophageal reflux disease. SURGICAL HISTORY : Hysterectomy. Hip replacement. ENCOUNTER: Initial ACUITY: 1 day PAIN SCALE: 4/10 LOCATION: Abdomen. TECHNIQUE: Following the oral ingestion of radiotracer-labeled meal, dynamic sequential images in the MOZ[employer]ICAN projec tion were acquired with simultaneous computer acquisition. The data set was decay-corrected. FINDINGS: LAG PHASE: There is zero minutes before onset of gastric emptying. EMPTYING: Gastric emptying kinetics are linear. The decay-corrected, back-extrapolated half-time of emptying i s much greater than 101 he minutes. (Normal for this lab is 45- 90 minutes.) INTERVENTION: There is minimal response to Reglan. CONCLUSION: 1. Markedly prolonged gastric emptying with minimal response to Reglan Tevin Rosa MD on March 19, 2017 at 11:40 Board Certified Radiologist. This report was verified electronically.
[2017-03-19] MEDS: SODIUM CHLOR 0.9% 1000 ML INJ 1,000 ML IV SCH (11:57)
[2017-03-19] MEDS: PANTOPRAZOLE SOD 40 MG DELAYED RELEASE TAB PO SCH (11:57)
[2017-03-19 12:08] VITALS: BP 133/78; PULSE 66; RESP 20; TEMP 98; O2SAT 98
[2017-03-19] MEDS: NYSTAT/DIPHENHY/LIDO MOUTHWASH (Adult) 120ML SWISH-SWAL PRN (12:52)
[2017-03-19] MEDS ORDERED: METOCLOPRAMIDE HCL 10 MG TAB PO SCH (14:00)
[2017-03-19] MEDS ORDERED: METO10TA PO (14:42)
--- NOTE | 2017-03-19 14:43 | HHI.PR ---
Objective Vitals Vital Signs Date Time Temp Pulse Resp B/P (MAP) Pulse Ox O2 Delivery O2 Flow Rate FiO2 03/19/17 12:08 98.0 66 20 133/78 (96) 98 03/19/17 07:36 98.0 59 20 184/78 (113) 100 03/19/17 04:54 48 03/19/17 03:59 98.7 54 18 161/77 (105) 98 03/18/17 23:15 98.1 57 18 165/80 (108) 98 03/18/17 16:39 98.2 66 20 163/77 (105) 96 I/O 03/18/17 03/18/17 03/18/17 03/19/17 03/19/17 03/19/17 07:00 15:00 23:00 07:00 15:00 23:00 Output Total 300 ml Balance -300 ml Output Urine Total 300 ml Result Diagram: 03/17/172 03/17/17 034 Objective Remarks GENERAL: This is a well-nourished, well-developed patient, in no apparent distress. SKIN: No rashes, warm and dry HEAD: Atraumatic. Normocephalic. EYES: Pupils equal round and reactive. Extraocular motions intact. No scleral icterus. ENT: Nose without bleeding, or drainage, Airway patent. NECK: Trachea midline. Supple CARDIOVASCULAR: Regular rate and rhythm without murmurs, gallops, or rubs. RESPIRATORY: Fair air entry bilaterally. No wheezes, rales, or rhonchi. GASTROINTESTINAL: Abdomen soft, non-tender, nondistended. Positive bowel sounds MUSCULOSKELETAL: Extremities without clubbing, cyanosis, or edema. Pedal pulses appreciated NEUROLOGICAL: Awake and alert. Moves all extremity. Normal speech.no focal neurological deficit A/P Assessment and Plan Atypical chest pain rule out cardiogenic versus GI source Patient had a history of dysphagia and underwent an EGD with Dilatation with Dr. Costa in November, which showed an esophageal stricture (S/P dilatation) and retained food in stomach. She then had a repeat on January 29 and was found to have stomach ulcers (S/P cauterization). She was told that her biopsies revealed H. Pylori and she completed treatment. After that patient went to [facility] for further evaluation. She states that they reviewed her records and told her she had esophageal candidiases and was given Diflucan 200mg po daily x 14 days. Negative cardiac enzymes, appreciate GI consultation going for EGD , patient went today 03/17 for barium swallow however patient refused to do empty studying as recommended I GI Has a history of esophageal candidiasis in the past. Nuclear stress test today came back negative Barium swallow no significant finding except degenerative disease in the cervical spine causing mild mass effect on the esophagus otherwise negative Plan for emptying study tomorrow Further recommendation per Dr. Sandy Discharge Planning When cleared by Adam Rae MD Mar 19, 2017 14:43
[2017-03-19] MEDS ORDERED: MAGICADU2 SWISH-SWAL (14:54)
--- NOTE | 2017-03-19 15:04 | HHI.DS ---
Discharge Summary Admission Date Mar 15, 2017 at 14:45 Discharge Date: Mar 19, 2017 Admitting Diagnosis (1) Gastroparesis ICD Code: K31.84 - Gastroparesis (2) H. pylori infection ICD Code: A04.8 - Other specified bacterial intestinal infections (3) Status post dilatation of esophageal stricture ICD Code: Z98.890 - Other specified postprocedural states; Z87.19 - Personal history of other diseases of the digestive system Procedures Barium swallow, GES, EGD Brief History - From Admission This is a 66-year-old female that presents to ED in [place] to evaluate a chest discomfort. Patient states that she had been recently diagnosed with H. pylori after having a 53 pound weight loss over the last 5-6 months. She had an endoscopy last month after completing treatment for H. pylori. She was found to have a fungal infection in the esophagus and placed on fluconazole. States she has 4 days left of that treatment. She states that for several weeks it feels as if food would get stock when she was swallowing. More recently she has gone to eating soft foods and even that seems to get stuck. States she has to drink a lot of water to get the food to go down. She states she has sensation of food being stuck even when she has not eaten. States she has been burping a lot, belching a lot, and gags a lot for no apparent reason. However over the last 4 nights she had new symptoms. She states that for the last 4 nights at approximately 6:00 in the evening she would develop a tightness in the center of her chest. This would last 1 hour to 1-1/2 hours. Maybe a little short of breath and maybe a little nausea. No emesis. No diaphoresis. States that nothing to do with congestion. She had not eaten prior to this discomfort occurring. However it also felt as if she had food stuck. Her children's lunchroom supervisor is Dr. Costa in [place]. CBC/BMP: 03/17/17 0342 03/17/17 0342 Significant Findings Laboratory Tests Test 03/17/17 03:42 Red Blood Count 3.99 MIL/MM3 (4.00-5.30) Monocytes (%) (Auto) 12.1 % (0.0-8.0) Random Glucose 72 MG/DL (74-106) Albumin 3.3 GM/DL (3.4-5.0) Estimat Glomerular Filtration Rate 76 ML/MIN (>89) PE at Discharge GENERAL: This is a well-nourished, well-developed patient, in no apparent distress. SKIN: No rashes, warm and dry HEAD: Atraumatic. Normocephalic. EYES: Pupils equal round and reactive. Extraocular motions intact. No scleral icterus. ENT: Nose without bleeding, or drainage, Airway patent. NECK: Trachea midline. Supple CARDIOVASCULAR: Regular rate and rhythm without murmurs, gallops, or rubs. RESPIRATORY: Fair air entry bilaterally. No wheezes, rales, or rhonchi. GASTROINTESTINAL: Abdomen soft, non-tender, nondistended. Positive bowel sounds MUSCULOSKELETAL: Extremities without clubbing, cyanosis, or edema. Pedal pulses appreciated NEUROLOGICAL: Awake and alert. Moves all extremity. Normal speech.no focal neurological deficit Hospital Course patient came with Atypical chest pain rule out cardiogenic versus GI source Patient had a history of dysphagia and underwent an EGD with Dilatation with Dr. Costa in November, which showed an esophageal stricture (S/P dilatation) and retained food in stomach. She then had a repeat on January 29 and was found to have stomach ulcers (S/P cauterization). She was told that her biopsies revealed H. Pylori and she completed treatment. After that patient went to [facility] for further evaluation. She states that they reviewed her records and told her she had esophageal candidiases and was given Diflucan 200mg po daily x 14 days. Negative cardiac enzymes, appreciate GI consultation going for EGD , patient went today 03/17 for barium swallow however patient refused to do empty studying as recommended I GI Has a history of esophageal candidiasis in the past. Nuclear stress test today came back negative Barium swallow no significant finding except degenerative disease in the cervical spine causing mild mass effect on the esophagus otherwise negative emptying study on 03/19 showed remarkable slowness with poor response to Reglan Discussed with Dr. MARION attending cleared patient to go on Reglan to follow up as an outpatient Pt Condition on Discharge: Fair Discharge Disposition: Discharge Home Discharge Time: > 30 minutes Discharge Instructions DIET: Follow Instructions for: Heart Healthy Diet Activities you can perform: Weight Bearing as Karina Follow up Referrals: Gastroenterology - 1 Week with Desirae Machuca MD New Medications: Duuuuewz-Dpakehacfcctoeo-Rcdochfkw Liq (Magic Mouthwash Adult Liq) 120 Ml Susp 10 ML SWISH-SWAL ACHS for Mouth sores, #120 ML 0 Refills Each 5mL contains: Nystatin 200,000units, Diphenhydramine 4.25mg, Viscous Lidocaine 10mg, Lopez syrup 0.8 mL Metoclopramide (Metoclopramide) 10 Mg Tab 10 MG PO Q8HR for gp, #90 TAB Continued Medications: Fluconazole (Fluconazole) 200 Mg Tab 200 MG PO DAILY, TAB 0 Refills Omeprazole Magnesium (Prilosec) 20 Mg Tab 1 TAB PO DAILY Adam Choudhury MD Mar 19, 2017 15:04
== END 2017-03-19 16:32 | disposition home or self-care (01) ==
LOC: NEDDLT 14:27 → NEPFCDU 14:45
PROVIDERS: ADMIT Hospitalist; ATTEND Hospitalist
DX: R07.9 Chest pain, unspecified (principal); B96.81 Helicobacter pylori [H. pylori] as the cause of diseases classified elsewhere; R63.4 Abnormal weight loss; R14.2 Eructation; R06.02 Shortness of breath; B37.81 Candidal esophagitis; K22.2 Esophageal obstruction; I10 Essential (primary) hypertension; E11.43 Type 2 diabetes mellitus with diabetic autonomic (poly)neuropathy; K25.9 Gastric ulcer, unspecified as acute or chronic, without hemorrhage or perforation; R14.0 Abdominal distension (gaseous); R68.81 Early satiety; R63.0 Anorexia; K21.9 Gastro-esophageal reflux disease without esophagitis; K31.84 Gastroparesis; Z79.899 Other long term (current) drug therapy
CPT/HCPCS: 00740; 43239; 71010; 74230; 78264; 78452; 80048; 80053; 82550; 82552; 83690; 83735; 84484; 85025; 85610; 85730; 88305; 93005; 93017; 96361; 96372; 96374; 96375; 99285; A9502; A9541; G0378; J1644; J2060; J2765; J2785; J7030; J7120

== ENCOUNTER 2017-03-21 13:00 | Emergency (ER) | payer OTHER ==
[~2017-03-21] VITALS: Ht 167.6 cm; Wt 58.5 kg
[~2017-03-21 13:00] MED LIST changes: +MAGICADU2 SWISH-SWAL; +METO10TA PO
[2017-03-21 13:01] VITALS: BP 187/105; PULSE 100; RESP 20; TEMP 98.5; O2SAT 98
--- NOTE | 2017-03-21 14:08 | PD ---
HPI Chief Complaint: Allergic/Adverse Reaction Time Seen by Provider: 13:53 Travel History International Travel<30 days: No Contact w/Intl Traveler<30days: No Traveled to known affect area: No History of Present Illness HPI 66-year-old female with PMH of gastroparesis,h. pylori, dysphagia, esophageal stricture status post dilatation presents to the ED for evaluation of dry throat , swollen tongue feeling after taking 4 doses of Reglan. She denies itching of the throat, cough, wheeze, breathing difficulties, nausea, vomiting. She states that she has been drinking copious amounts of water since symptoms began with no resolution of the dryness. Patient states that she's taken Reglan in the past and had a similar reaction. She is followed by Dr. Machuca and has an appointment next week. PFSH Past Medical History Cancer: Yes (skin cancer on face (removed)) Cardiac Catheterization: No Cardiovascular Problems: No High Cholesterol: Yes Congestive Heart Failure: No Diabetes: Yes Patient Takes Glucophage: No Diminished Hearing: No Fibromyalgia: Yes Gastrointestinal Disorders: Yes (H pylori) GERD: Yes (H-PYLORI) Hypertension: Yes Medical other: Yes (Right buttock, red bump size of the dime, antibiotics completed) Musculoskeletal: Yes (arthritis) Tetanus Vaccination: Unknown Influenza Vaccination: Yes ?: Not Menopausal: Yes : 3 Para: 2 Miscarriage: 1 Past Surgical History Coronary Artery Bypass Graft: No Gynecologic Surgery: Yes (hysterectomy with removal of one ovary) Hysterectomy: Yes Joint Replacement: Yes (LEFT HIP) Social History Alcohol Use: No Tobacco Use: No Substance Use: No Allergies-Medications (Allergen,Severity, Reaction): Coded Allergies: erythromycin base (Verified Allergy, Severe, THROAT CLOSES, 03/21/17) metoclopramide (Verified Allergy, Severe, tongue swelling, 03/21/17) Reported Meds & Prescriptions Reported Meds & Active Scripts Active Bethanechol 10 Mg Tab 10 Mg PO TIDAC 30 Days Take medication before meals Magic Mouthwash Adult Liq (Multi-Ingredient Mouthwash/Gargle) 120 Ml Susp 10 Ml SWISH-SWAL ACHS Each 5mL contains: Nystatin 200,000units, Diphenhydramine 4.25mg, Viscous Lidocaine 10mg, Lopez syrup 0.8 mL Metoclopramide (Metoclopramide HCl) 10 Mg Tab 10 Mg PO Q8HR Reported Fluconazole 200 Mg Tab 200 Mg PO DAILY Prilosec (Omeprazole Magnesium) 20 Mg Tab 1 Tab PO DAILY Review of Systems Except as stated in HPI: all other systems reviewed are Neg Physical Exam Narrative GENERAL: Well-nourished, well-developed anxious-appearing white female in no acute distress. SKIN: Focused skin assessment warm/dry. HEAD: Normocephalic. EYES: No scleral icterus. No injection or drainage. NECK: Supple, trachea midline. No JVD or lymphadenopathy. CARDIOVASCULAR: Regular rate and rhythm without murmurs, gallops, or rubs. RESPIRATORY: Breath sounds equal bilaterally. No accessory muscle use. GASTROINTESTINAL: Abdomen soft, non-tender, nondistended. MUSCULOSKELETAL: No cyanosis, or edema. BACK: Nontender without obvious deformity. No CVA tenderness. Data Data Last Documented VS Vital Signs Date Time Temp Pulse Resp B/P (MAP) Pulse Ox O2 Delivery O2 Flow Rate FiO2 03/21/17 13:01 98.5 100 20 187/105 (132) 98 Room Air Orders Orders Ed Discharge Order (03/21/17 14:30) MDM Medical Decision Making Medical Screen Exam Complete: Yes Emergency Medical Condition: Yes Differential Diagnosis Gastroparesis versus medication reaction versus anxiety versus other Narrative Course 66-year-old female with PMH of gastroparesis,h. pylori, dysphagia, esophageal stricture s/p dilatation presents to the ED for evaluation of dry throat, swollen tongue feeling after taking 4 doses of Reglan. She denies itching of the throat, cough, wheeze, breathing difficulties, nausea, vomiting. She's been able to drink water with no difficulties. I reviewed the patient's record , she was discharged on 03/19. During that time she underwent an EGD that was negative and had a barium swallow that revealed osteophytes with mild mass effect on the esophagus. The patient had a gastric emptying study that revealed gastroparesis. It seems the symptoms that she is complaining of today are similar to those that she had in the hospital. Vitals reviewed. ENT exam is reassuring. The airway is patent. The uvula is midline. There is no oropharyngeal edema. Chest is clear to auscultation bilaterally. No wheezing noted. I spoke with Dr. nichole bowser who recommends discontinuing Reglan. He recommends bethanechol 10 mg 3 times a day before meals. The patient can follow up as planned. I discussed this plan with the patient and her who are agreeable. Patient is stable and discharged home. Diagnosis Primary Impression: Gastroparesis Additional Impression: Medication reaction Qualified Codes: T88.7XXA - Unspecified adverse effect of drug or medicament, initial encounter Referrals: Desirae Machuca MD Patient Instructions: Gastroparesis (ED), General Instructions Additional Instructions: Rest, hydrate. Discontinue Reglan. Take bethanechol 3 times a day before meals as prescribed. Follow-up with Dr. Patrick as planned. Return to the ED for worsening symptoms or any urgent or emergent medical condition. Med/Other Pt SpecificInfo: Prescription(s) given Scripts Bethanechol (Bethanechol) 10 Mg Tab 10 MG PO TIDAC for Gastroparesis for 30 Days, TAB 0 Refills Take medication before meals Prov: Louis Bosch MD 03/21/17 Disposition: 01 DISCHARGE HOME Condition: Stable Karime Goldstein Mar 21, 2017 14:08
[2017-03-21] MEDS ORDERED: BETH10TA2 PO (14:30)
== END 2017-03-21 14:39 | disposition home or self-care (01) ==
LOC: NEPC 13:00
DX: E11.43 Type 2 diabetes mellitus with diabetic autonomic (poly)neuropathy (principal); K31.84 Gastroparesis; J39.2 Other diseases of pharynx; T45.0X5A Adverse effect of antiallergic and antiemetic drugs, initial encounter
CPT/HCPCS: 99282

== ENCOUNTER → 2017-09-14 | Outpatient (CLI) | DX: M16.11 Unilateral primary osteoarthritis, right hip (principal); M79.609 Pain in unspecified limb; E11.9 Type 2 diabetes mellitus without complications ==

== ENCOUNTER 2017-09-25 05:24 | Inpatient (IN) | payer MEDICARE, OTHER ==
[~2017-09-25] VITALS: Ht 167.6 cm; Wt 59.8 kg
[~2017-09-25 05:24] MED LIST changes: -ATOR40TA16 PO; -CHOL10008 PO; -FLUC200T2 PO; -LISI10TA PO; -MAGICADU2 SWISH-SWAL; -METO10TA PO; +MULT-65 PO; -PRIL20TA2 PO; +SIME1CAP17 PO; -SITA1TAB2 PO; +VITA100064 PO
[2017-09-25] MEDS ORDERED: ACETAMINOPHEN 1000 MG/100 ML 100 ML IV ONE (06:00)
[2017-09-25] MEDS ORDERED: SODIUM CHLORID 0.9% 500 ML IV PRN (06:00)
[2017-09-25] MEDS ORDERED: ceFAZolin 2 GM PREMIX 50 ML IV SCH (06:00)
[2017-09-25] MEDS ORDERED: EXPAREL PERI-ARTICULAR INJECTION (TOTAL VOL. 60 ML) P-ARTICULR SCH ×2 (06:00)
[2017-09-25] MEDS ORDERED: TRANEXAMIC ACID INJ 600 MG in SODIUM CHLORIDE 0.9% INJ 100 ML IV SCH ×4 (06:00)
[2017-09-25] MEDS ORDERED: CHLORHEXIDINE GLUCONATE 2 % 1 PACK (2 CLOTHS) TOPICAL PRN (06:00)
[2017-09-25] MEDS ORDERED: POVIDONE IODINE 5% (ANTISEPSIS KIT) 4 APPLICATIONS EACH NARE PRN (06:00)
[2017-09-25] MEDS ORDERED: CHLORHEXIDINE GLUCONATE 4% SOLN 120 ML BTL TOPICAL SCH (06:00)
[2017-09-25] MEDS ORDERED: METOPROLOL TARTRATE 25 MG TAB PO PRN (06:00)
[2017-09-25] MEDS ORDERED: LACTATED RINGER'S 1000 ML IV PRN (06:00)
[2017-09-25] MEDS ORDERED: MIDAZOLAM HCL 2 MG/2 ML VIAL ONE ×2 (06:01→09:53)
[2017-09-25] MEDS ORDERED: PROPOFOL 500 MG/50 ML INJ 0 ML ONE (06:01)
[2017-09-25] MEDS ORDERED: BUPIVACAINE PF 0.75% DEX-WATER INJ 2 ML AMP ONE (06:03)
[2017-09-25] MEDS ORDERED: GENTAMICIN SULFATE 80 MG/2 ML VIAL ONE (06:04)
[2017-09-25] MEDS ORDERED: ACETAMINOPHEN/HYDROcodone 325 MG/7.5 MG TAB PO PRN ×2 (09:15)
[2017-09-25] MEDS ORDERED: TRANEXAMIC ACID INJ 0 MG in SODIUM CHLORIDE 0.9% INJ 100 ML IV SCH (09:15)
[2017-09-25] MEDS ORDERED: BISACODYL 10 MG SUPP RECTAL PRN (09:15)
[2017-09-25] MEDS ORDERED: Post-op Orders (for Pharmacy) XX ONE (09:15)
[2017-09-25] MEDS ORDERED: MAGNESIUM HYDROXIDE SUSP 30 ML CUP PO PRN (09:15)
--- NOTE | 2017-09-25 09:26 | PD.OP ---
Operative Report Date of Surgery: September 25, 2017 Preoperative Diagnosis: (1) Primary osteoarthritis of right hip Postoperative Diagnosis: (1) Primary osteoarthritis of right hip Procedure: Right total hip arthroplasty using Corning prosthesis. Anesthesia: General endotracheal with supplemental local with Exparel Surgeon: Nadir Tovar MD Therapeutic Massage Technician(s): KATHE Thomas Operation and Findings: Indications and Findings: This 67-year-old woman has had long-standing pain in her right hip for the past 6 years at least. Her arthritis is worsened to the point that her ambulation tolerance is 1/2-1 block. She has difficulty with stairs. She uses external supports. She has difficulty lifting her leg. She has not responded to conservative measures including anti-inflammatory agents, analgesics, activity modification, exercise and ambulatory aids. Physical findings showed significant loss of motion in the hip with an external rotation deformity. There is a significant antalgic gait. There is crepitation on motion. X-ray showed severe osteoarthritis with erosion of the superior aspect of the acetabulum, osteophytes, eburnation and some degenerative cysts. Operative findings: The hip had severe arthritis with loss of articular cartilage to bone on bone particularly in the superior aspect of the acetabulum and femoral head. There was flattening of the femoral head with D formation. There are osteophytes and there was eburnation as noted previously. There are also subchondral cysts. Implants: The acetabular component was a 54 mm external diameter Tritanium cluster shell with a 36 mm inner diameter 0 X3 polyethylene liner. The femoral component was Accolade 2 size 5 x 132 neck angle. The femoral head was 36 mm outer diameter, -5 mm offset, Biolox Delta. The patient was brought to the clean air operating suite and a general anesthetic was administered. The patient was then positioned into a lateral position with the operative hip up on a GripeO lateral positioner. The hip and lower extremity were then prepped with alcohol, Hibiclens and ChloraPrep and draped in the usual manner with the hip draped free. Patient received prophylactic antibiotics preoperatively. The patient also received tranexamic acid preoperatively. An appropriate timeout procedure was carried out. An incision was then made from the midportion of the greater trochanter proximally and posteriorly paralleling the fibers of the gluteus luis felipe. The incision was deepened through subcutaneous tissues down to the fascia weston and gluteus fascia. The gluteus fascia was then split longitudinally in line with its fibers up to the upper portion of the fascia weston. With wound towels in place, the Charnley retractor was inserted. The sciatic nerve was identified and protected throughout the procedure. Dissection was then carried down to the interval between the gluteus minimus and the piriformis. A retractor was inserted. The piriformis and obturator conjoined tendon was released from the greater trochanter and reflected off the capsule. A capsulotomy was made longitudinally along the femoral neck to the base of the femoral neck and then curved distally along the posterior aspect of the greater trochanter. The hip was then internally rotated. Further release of the external rotators was carried out exposing the hip. The hip was then dislocated. The femoral neck was transected at the appropriate level using the oscillating saw placement of appropriate retractors. The femoral head was then removed. Preparation of the femur was initiated with a box osteotome followed by a curet to identify the medullary canal. Broaching was then initiated with the size 0 broach and went and 1 size increments up to size 5. The broach handle was removed. The femoral neck was then trimmed with a calcar planar. Attention was then directed to the acetabulum. Soft tissues were debrided from the acetabulum. Retractors were placed about the acetabulum. Reaming was then initiated with the 47 millimeter reamer and went in 1-2 mm increments up to the 53 millimeter diameter reamer. A trial reduction with the 54 millimeter trial prosthesis was carried out. When this was deemed to be appropriate, the trial prosthesis was removed. The acetabulum was then irrigated and cleaned. The actual prosthesis as noted above was then impacted into place and seated appropriately. Drill holes were then made and sounded. Appropriate sized screws were then inserted to stabilize the acetabulum further. The liner as noted above was then inserted into the acetabular shell and impacted into place. Osteophytes were trimmed from the acetabulum. Local anesthetic was then administered throughout the area of the acetabulum and anterior aspect of the femur. The trial neck was then placed on the broach for the above-noted prosthesis. The femoral head trial was placed onto the femoral neck . A trial reduction was then carried out. Adjustment was made as needed. The stability, leg length and motion were excellent. There was no pistoning. The trial prosthesis was removed. The broach was removed. The femoral component was then impacted into the medullary canal of the femur after irrigation and suctioning. When this was appropriately seated a trial reduction was again carried out with the trial prosthesis. Again, there was no pistoning. The leg length was appropriate. The stability and motion were excellent. The trial prosthesis was then removed. After cleaning and drying the trunion of the femoral component, the above-noted femoral head was impacted onto the trunnion. The hip was then reduced. The stability and mobility were again checked along with leg lengths as noted above. Prior to closure, cancellus bone graft was placed at the upper lip of the acetabular component. The hip was then positioned appropriately and closure commenced after the remainder of the local anesthetic was injected throughout the hip. The external rotators and capsule were then repaired with #1 Vicryl interrupted transosseous sutures with a Krak w technique to reattach the external rotators and capsule to the posterior aspect of the greater trochanter. The capsule itself on the superior aspect was closed with #1 Vicryl interrupted [id number] sutures. The sciatic nerve was again inspected. The fascia weston and gluteus fascia were then repaired with #1 Vicryl interrupted [id number] sutures. The subcutaneous tissues were closed with 2-0 Vicryl interrupted simple sutures with buried knots. The skin was closed with a continuous subcuticular closure of 4-0 Monocryl. The wound was then approximated with Dermabond Prineo. A silver impregnated dressing was applied to the hip. A knee immobilizer was applied to the leg. The patient was then transferred from the operating room to the recovery room in satisfactory condition having tolerated the procedure well. Counts are correct. Specimens: None. Estimated blood loss: 400 mL Jennifer Tovar MD (Charles) September 25, 2017 09:25
--- NOTE | 2017-09-25 09:28 | HHI.FF ---
Face to Face Verification Diagnosis: (1) Status post total hip replacement, right Physical Therapy Gait training Hip: Total hip, Protocol: Right, Posterior hip precautions, Progress to weight bearing Canvas Knee Splint: When in bed & 2 pillows btw thighs Right LE Range of Motion: Active ROM Left LE Weight Bearing: WB as tolerated Nursing Nursing: Dressing changes Dressing Changes: Daily dressing change, Coverderm/Primapore Additional Instructions Do not remove Dermabond Prineo. I have seen patient Lucinda Flores on 09/25/17. My clinical findings support the need for the requested home health care services because: Ltd mobility - disease progression Limited ability to care for self High risk of falls I certify that my clinical findings support that this patient is homebound because: Post-op weakness Unsteady gait/balance Unsafe to leave home unassisted Jennifer Tovar MD (Charles) September 25, 2017 09:28
[2017-09-25] MEDS ORDERED: HYDR-3580 PO (09:34)
[2017-09-25] MEDS ORDERED: ECASA81 PO (09:34)
[2017-09-25] MEDS ORDERED: ONDANSETRON ODT 4 MG TAB PO PRN (09:45)
[2017-09-25] MEDS ORDERED: MORPHINE SULFATE 4 MG/ML INJ IV PUSH PRN (09:45)
[2017-09-25] MEDS ORDERED: DO NOT ADM ANY ANTICOAGULANT DRUGS PRN (09:46)
[2017-09-25] MEDS ORDERED: *MEPERIDINE 25 MG INJ VIAL PERIprocedural Use ONLY ONE (09:50)
[2017-09-25] MEDS: LACTATED RINGER'S 1000 ML INJ 1,000 ML IV SCH ×2 (10:00→21:39)
[2017-09-25] MEDS: KETOROLAC TROMETHAMINE 30 MG/ML (IVP) VIAL IVP SCH ×3 (10:11→23:00)
[2017-09-25] MEDS ORDERED: PROPOFOL 200 MG/20 ML AMP IV ONE (10:29)
[2017-09-25] MEDS ORDERED: ONDANSETRON HCL 4 MG/2 ML VIAL IV PUSH ONE (10:29)
[2017-09-25] MEDS ORDERED: DEXAMETHASONE SOD PHOS 4 MG/ML VIAL IV ONE (10:29)
[2017-09-25] MEDS ORDERED: ROCURONIUM INJ 50 MG/5 ML SYRINGE IV PUSH ONE (10:29)
[2017-09-25] MEDS ORDERED: LACTATED RINGER'S 1000 ML INJ 1,000 ML IV ONE (10:29)
[2017-09-25] MEDS ORDERED: LIDOCAINE HCL 1% PF 5 ML SYRINGE OTHER ONE (10:29)
[2017-09-25 11:00] VITALS: BP 163/73; PULSE 53; RESP 20; TEMP 97.2; O2SAT 99
[2017-09-25] MEDS ORDERED: ENALAPRILAT 1.25 MG/ML VIAL IV PUSH PRN (12:30)
--- NOTE | 2017-09-25 12:48 | PD.CONS ---
[facility] By Dr. MATT Tovar Reason for Consult Opinion recommendation on treatment of patient's elevated blood pressure Primary Care Physician Conner Broussard MD Diagnoses: History of Present Illness 67-year-old white female with a history of hypertension, osteoarthritis, hypo- lipidemia, gastroparesis has had long-term history of right hip pain despite conservative treatment. She electively underwent a right total hip replacement today with Dr. Tovar. She states that she struggled with gastroparesis and has had difficulty digesting her food. She states that simethicone over-the -counter does help. She has not tolerated Reglan or erythromycin in the past. She is being followed as an outpatient for her gastroparesis. She currently does not take antihypertensive and states that her blood pressure is usually well controlled at home without any medications. She has not had any blood in the stools or black stools. She states currently her blood pressure is controlled well. Review of Systems Constitutional: COMPLAINS OF: Change in appetite, DENIES: Fatigue, Fever, Chills Endocrine: DENIES: Heat/cold intolerance Eyes: DENIES: Blurred vision, Eye pain, Vision loss Ears, nose, mouth, throat: DENIES: Hearing loss, Nasal discharge, Throat pain, Ear Pain, Sinus Pain Respiratory: DENIES: Cough, Shortness of breath Cardiovascular: DENIES: Chest pain, Palpitations, Dyspnea on Exertion, Lower Extremity Edema Gastrointestinal: COMPLAINS OF: Nausea, DENIES: Abdominal pain, Black stools, Bloody stools, Constipation, Diarrhea, Vomiting Genitourinary: DENIES: Dysuria Musculoskeletal: COMPLAINS OF: Joint pain (Right hip pain), DENIES: Muscle aches, Stiffness Integumentary: DENIES: Rash Hematologic/lymphatic: DENIES: Bruising, Lymphadenopathy Immunologic/allergic: DENIES: Eczema Neurologic: DENIES: Headache, Localized weakness, Paresthesias Psychiatric: DENIES: Anxiety, Depression, Suicidal Ideation Past Family Social History Allergies: Coded Allergies: erythromycin base (Verified Allergy, Severe, THROAT CLOSES, 09/14/17) metoclopramide (Verified Allergy, Severe, tongue swelling, 09/14/17) Past Medical History Hypertension Hyperlipidemia Osteoarthritis Gastroparesis Skin cancer Past Surgical History Hysterectomy Left total hip replacement Skin cancer removal Reported Medications Vitamin D 3000 units p.o. daily [place] 1 p.o. every 4 hours as needed for pain Multivitamin 1 p.o. daily Simethicone 125 mg p.o. twice daily Physical Exam Vital Signs Vital Signs Date Time Temp Pulse Resp B/P (MAP) Pulse Ox O2 Delivery O2 Flow Rate FiO2 09/25/17 11:00 97.2 53 20 163/73 (103) 99 09/25/17 10:45 97.6 55 16 150/72 (98) 100 Nasal Cannula 2 09/25/17 10:30 53 16 151/71 (97) 100 Nasal Cannula 2 09/25/17 10:15 58 16 153/69 (97) 100 Nasal Cannula 2 09/25/17 10:00 58 16 147/66 (93) 100 Nasal Cannula 2 09/25/17 09:45 97.6 63 136/61 (86) Nasal Cannula 2 09/25/17 06:24 98.1 66 18 200/88 (125) 99 Physical Exam GENERAL: This is a well-nourished, well-developed patient, in no apparent distress. SKIN: No rashes, ecchymoses or lesions. Cool and dry. HEAD: Atraumatic. Normocephalic. No temporal or scalp tenderness. EYES: Pupils equal round and reactive. Extraocular motions intact. No scleral icterus. No injection or drainage. ENT: Nose without bleeding, purulent drainage or septal hematoma. Throat without erythema, tonsillar hypertrophy or exudate. Uvula midline. Airway patent. NECK: Trachea midline. No JVD or lymphadenopathy. Supple, nontender, no meningeal signs. CARDIOVASCULAR: Regular rate and rhythm without murmurs, gallops, or rubs. RESPIRATORY: Clear to auscultation. Breath sounds equal bilaterally. No wheezes , rales, or rhonchi. GASTROINTESTINAL: Abdomen soft, non-tender, nondistended. No hepato-splenomegaly , or palpable masses. No guarding. MUSCULOSKELETAL: Extremities without clubbing, cyanosis, or edema. No joint tenderness, effusion, or edema noted. No calf tenderness. Negative Homans sign bilaterally. NEUROLOGICAL: Awake and alert. Cranial nerves II through XII intact. Motor and sensory grossly within normal limits. Five out of 5 muscle strength in all muscle groups. Normal speech. Assessment and Plan Assessment and Plan 1. Status post right total knee arthroplasty - continue postoperative care, pain control, physical therapy per Dr. Tovar orthopedic surgery 2. Hypertension with elevated blood pressure. Patient currently not on antihypertensive. Will recommend IV Vasotec as needed and monitor blood pressure trends for further recommendations. Elevated blood pressure may be due to pain. 3. DVT prophylaxis -per orthopedic surgery Thank you for this consultation Annabel Carter MD September 25, 2017 12:48
[2017-09-25 16:00] VITALS: BP 159/70; PULSE 58; RESP 20; TEMP 97.2; O2SAT 100
--- NOTE | 2017-09-25 16:26 | RADRPT ---
EXAM DATE: 09/25/2017 4:18 PM EDT AGE/SEX: 67 years / Female INDICATIONS: Post op right hip. CLINICAL DATA: This is the patient's initial encounter. Patient reports that signs and symptoms have been present for 1 day and indicates a pain score of 4/10. MEDICAL/SURGICAL HISTORY: None. None. COMPARISON: No prior [facility] exams available for comparison. FINDINGS: Postsurgical features of total right hip arthroplasty. Arthroplasty components are well-positioned an d in anatomic alignment. No significant acute fracture. CONCLUSION: 1. Right hip arthroplasty in anatomic alignment without acute fracture. Electronically signed by: Cole Mancilla MD 09/25/2017 4:24 PM EDT
[2017-09-25 19:11] VITALS: BP 153/71; PULSE 78; RESP 18; TEMP 98.2; O2SAT 97
[2017-09-25] MEDS ORDERED: ZOLPIDEM TARTRATE 5 MG TAB PO PRN (21:00)
[2017-09-25] MEDS: SIMETHICONE 125 MG CHEWABLE TAB PO SCH (21:38)
[2017-09-25 23:01] VITALS: BP 108/57; PULSE 76; RESP 18; TEMP 98.2; O2SAT 97
[2017-09-26] MEDS: KETOROLAC TROMETHAMINE 30 MG/ML (IVP) VIAL IVP SCH ×5 (01:10→22:08)
[2017-09-26 03:48] VITALS: BP 109/53; PULSE 78; RESP 18; TEMP 98.6; O2SAT 98
--- NOTE | 2017-09-26 06:48 | PD.ORT.PN ---
Subjective Post Op Day #: 1 Subjective Remarks She is doing relatively well. She has minimal complaints related to the hip itself. Apparently she did "faint" twice with therapy and with nursing. She has been watched carefully now and is able to get up without dizziness. Distance Walked 10 feet with PT. Objective Vitals Vital Signs Date Time Temp Pulse Resp B/P (MAP) Pulse Ox O2 Delivery O2 Flow Rate FiO2 09/26/17 03:48 98.6 78 18 109/53 (71) 98 09/25/17 23:01 98.2 76 18 108/57 (74) 97 09/25/17 19:11 98.2 78 18 153/71 (98) 97 09/25/17 16:00 97.2 58 20 159/70 (99) 100 09/25/17 11:00 97.2 53 20 163/73 (103) 99 09/25/17 10:45 97.6 55 16 150/72 (98) 100 Nasal Cannula 2 09/25/17 10:30 53 16 151/71 (97) 100 Nasal Cannula 2 09/25/17 10:15 58 16 153/69 (97) 100 Nasal Cannula 2 09/25/17 10:00 58 16 147/66 (93) 100 Nasal Cannula 2 09/25/17 09:45 97.6 63 136/61 (86) Nasal Cannula 2 I/O 09/25/17 09/25/17 09/25/17 09/26/17 09/26/17 09/26/17 07:00 15:00 23:00 07:00 15:00 23:00 Intake Total 1600 ml 726 ml 580 ml Output Total 400 ml Balance 1200 ml 726 ml 580 ml Intake Oral 360 ml 480 ml IV Total 100 ml 366 ml 100 ml Other 1500 ml Output Estimated Blood Loss 400 ml # Voids 1 2 # Bowel Movements 0 Imaging Last 24 hours Impressions Hip X-Ray 09/25/17 0915 Signed Impressions: CONCLUSION: 1. Right hip arthroplasty in anatomic alignment without acute fracture. Objective Remarks She is sitting out of bed in the chair, comfortably. The dressing is dry and intact. The neurovascular status is intact. Assessment & Plan Ortho Post Op Day #: 1 Problem List: (1) Status post total hip replacement, right ICD Codes: Z96.641 - Presence of right artificial hip joint (2) Primary osteoarthritis of right hip ICD Codes: M16.11 - Unilateral primary osteoarthritis, right hip Status: Resolved Assessment and Plan Condition: Good. Orthopedically stable. DVT prophylaxis: TEDs, aspirin, sequentials. Discharge plans: Home with home health care, probably tomorrow. An appointment was scheduled through the office. Prescriptions: [employer] 7.5/325 Jennifer Tovar MD ([place]) September 26, 2017 06:48
[2017-09-26 08:00] VITALS: BP 108/54; PULSE 77; RESP 16; TEMP 98.7; O2SAT 98
[2017-09-26 08:12] LABS: HEMATOCRIT 25.1 % (35.0-46.0); HEMOGLOBIN 8.5 GM/DL (11.6-15.3)
[2017-09-26] MEDS: SIMETHICONE 125 MG CHEWABLE TAB PO SCH ×3 (08:46→22:07)
[2017-09-26] MEDS: MULTIVITAMIN TAB PO SCH (08:46)
[2017-09-26] MEDS: CHOLECALCIFEROL (VIT D3) 1000 UNIT TAB PO SCH (08:47)
[2017-09-26] MEDS: ASPIRIN EC 81 MG TABEC PO SCH ×2 (09:51→22:07)
--- NOTE | 2017-09-26 10:44 | HHI.PR ---
Subjective Remarks Patient still with poor appetite due to history of gastroparesis. She is not willing to try any type of medication including Reglan, erythromycin, bethanechol. She states all that has not helped. The only medication that helpless simethicone [id number] for gas pains. In addition, she had 2 episodes of syncope working with physical therapy and getting up from the bed per nursing staff. She has had poor oral intake during postoperative period. She is open to trying some chocolate supplements with meals today. Objective Vitals Vital Signs Date Time Temp Pulse Resp B/P (MAP) Pulse Ox O2 Delivery O2 Flow Rate FiO2 09/26/17 08:00 98.7 77 16 108/54 (72) 98 09/26/17 03:48 98.6 78 18 109/53 (71) 98 09/25/17 23:01 98.2 76 18 108/57 (74) 97 09/25/17 19:11 98.2 78 18 153/71 (98) 97 09/25/17 16:00 97.2 58 20 159/70 (99) 100 09/25/17 11:00 97.2 53 20 163/73 (103) 99 09/25/17 10:45 97.6 55 16 150/72 (98) 100 Nasal Cannula 2 I/O 09/25/17 09/25/17 09/25/17 09/26/17 09/26/17 09/26/17 07:00 15:00 23:00 07:00 15:00 23:00 Intake Total 1600 ml 726 ml 580 ml Output Total 400 ml 300 ml Balance 1200 ml 726 ml 580 ml -300 ml Intake Oral 360 ml 480 ml IV Total 100 ml 366 ml 100 ml Other 1500 ml Output Urine Total 300 ml Estimated Blood Loss 400 ml # Voids 1 2 # Bowel Movements 0 Result Diagram: 09/26/17 0705 Objective Remarks GENERAL: This is a well-nourished, well-developed patient, in no apparent distress. CARDIOVASCULAR: Regular rate and rhythm RESPIRATORY: Clear to auscultation. Breath sounds equal bilaterally. No wheezes , rales, or rhonchi. GASTROINTESTINAL: Abdomen soft, non-tender, nondistended. Normal active bowel sounds MUSCULOSKELETAL: Right hip bandage clean dry and intact NEURO: Alert & Oriented x4 to person, place, time, situation. Moves all ext x4 A/P Assessment and Plan 1. Status post operative day #1 right total knee arthroplasty - continue postoperative care, pain control, physical therapy per Dr. Tovar orthopedic surgery 2. Hypertension with postoperative elevated blood pressure and now much better controlled overnight. Patient currently not on antihypertensive. Will recommend IV Vasotec as needed . Elevated blood pressure may be due to pain. 3. Syncope episode likely due to vasovagal and poor oral intake. Encourage oral intake and staff taking precautions with patient getting up from the bed for physical therapy 4. History of gastroparesis. Patient does not want try any medication for her gastroparesis. She is open to starting oral supplements with her meals twice daily. 3. DVT prophylaxis -per orthopedic surgery Discharge Planning To home with home health care when cleared by orthopedic surgery. Annabel Carter MD September 26, 2017 10:44
[2017-09-26] MEDS: LACTATED RINGER'S 1000 ML INJ 1,000 ML IV SCH ×2 (11:00→23:30)
[2017-09-26 12:00] VITALS: BP 123/60; PULSE 81; RESP 16; TEMP 98.4; O2SAT 100
[2017-09-26 16:00] VITALS: BP 113/57; PULSE 85; RESP 16; TEMP 98.9; O2SAT 100
[2017-09-26 20:00] VITALS: BP 141/63; PULSE 82; RESP 18; TEMP 99.2; O2SAT 97
[2017-09-26] MEDS: DOCUSATE SODIUM 100 MG CAP PO SCH (22:06)
[2017-09-27 00:01] VITALS: BP 136/61; PULSE 74; RESP 18; TEMP 98.5; O2SAT 99
[2017-09-27 04:00] VITALS: BP 122/57; PULSE 71; RESP 17; TEMP 98.8; O2SAT 98
[2017-09-27] MEDS: KETOROLAC TROMETHAMINE 30 MG/ML (IVP) VIAL IVP SCH (05:00)
[2017-09-27 06:05] LABS: HEMATOCRIT 23.1 % (35.0-46.0)
--- NOTE | 2017-09-27 07:30 | PD.ORT.PN ---
Subjective Post Op Day #: 2 Subjective Remarks She is doing relatively well. She has minimal complaints related to the hip itself. She had no vertigo or dizziness yesterday with therapy. Distance Walked 80 feet with physical therapy. Objective Vitals Vital Signs Date Time Temp Pulse Resp B/P (MAP) Pulse Ox O2 Delivery O2 Flow Rate FiO2 09/27/17 04:00 98.8 71 17 122/57 (78) 98 09/27/17 00:01 98.5 74 18 136/61 (86) 99 09/26/17 20:00 99.2 82 18 141/63 (89) 97 09/26/17 16:00 98.9 85 16 113/57 (75) 100 09/26/17 12:00 98.4 81 16 123/60 (81) 100 09/26/17 08:00 98.7 77 16 108/54 (72) 98 I/O 09/26/17 09/26/17 09/26/17 09/27/17 09/27/17 09/27/17 07:00 15:00 23:00 07:00 15:00 23:00 Intake Total 580 ml 800 ml 460 ml Output Total 300 ml Balance 580 ml -300 ml 800 ml 460 ml Intake Oral 480 ml 800 ml 460 ml IV Total 100 ml Output Urine Total 300 ml # Voids 2 4 3 # Bowel Movements 0 0 Result Diagram: 09/27/17 0517 Imaging Last 24 hours Impressions Hip X-Ray 09/25/17 0914 Signed Impressions: CONCLUSION: 1. Right hip arthroplasty in anatomic alignment without acute fracture. Objective Remarks She is resting comfortably, supine in bed. The original surgical dressing is dry and intact. The neurovascular status is intact. Assessment & Plan Ortho Post Op Day #: 2 Problem List: (1) Status post total hip replacement, right ICD Codes: Z96.641 - Presence of right artificial hip joint Plan: Continue postop care and PT. (2) Primary osteoarthritis of right hip ICD Codes: M16.11 - Unilateral primary osteoarthritis, right hip Status: Resolved Assessment and Plan Condition: Good. Orthopedically stable. DVT prophylaxis: TEDs, aspirin, sequentials. Discharge plans: Home with home health care, today. An appointment was scheduled through the office. Prescriptions: [employer] 7.5/325 Jennifer Tovar MD ([place]) September 27, 2017 07:30
--- NOTE | 2017-09-27 07:51 | HHI.DS ---
Discharge Summary Admission Date September 25, 2017 at 05:24 Discharge Date: September 27, 2017 Admitting Diagnosis Primary osteoarthritis, right hip. Diagnosis: (1) Status post total hip replacement, right Diagnosis: Principal ICD Codes: Z96.641 - Presence of right artificial hip joint (2) Primary osteoarthritis of right hip Diagnosis: Principal ICD Codes: M16.11 - Unilateral primary osteoarthritis, right hip Status: Resolved Procedures Right total hip arthroplasty using Robby prosthesis, on 09/25/2017. Brief History This is a 67 year old female patient has had long-standing problems with her right hip because of significant arthritis. This gave her limited ambulation tolerance. She has had difficulty continuing activities of daily living. She has not responded to conservative measures including anti-inflammatory agents, analgesics, external supports and ambulatory aids. Physical findings showed external rotation deformity of the right lower extremity with shortening and tenderness on motion. X-ray showed severe osteoarthritis in the right hip with loss of articular cartilage to [id number], eburnation, osteophytes. CBC/BMP: 09/27/17 0517 Significant Findings Laboratory Tests Test 09/26/17 07:05 09/27/17 05:17 Hemoglobin 8.5 GM/DL (11.6-15.3) 8.0 GM/DL (11.6-15.3) Hematocrit 25.1 % (35.0-46.0) 23.1 % (35.0-46.0) Imaging Last 72 hours Impressions Hip X-Ray 09/25/17 0915 Signed Impressions: CONCLUSION: 1. Right hip arthroplasty in anatomic alignment without acute fracture. PE at Discharge She is resting comfortably, supine in bed. The original surgical dressing is dry and intact. The neurovascular status is intact. Hospital Course The patient was admitted as noted above. The above noted operative procedure was carried out that day. Preoperatively prophylactic antibiotics were administered Ancef according to protocol. These were continued postoperatively. The patient also received tranexamic acid to help with hemostasis according to protocol. In the postanesthesia care unit mechanical methods of DVT prophylaxis were initiated using sequential hose and AVRIL stockings.. Physical therapy was initiated on the day of surgery. On postoperative day #1 physical therapy continued. DVT prophylaxis with aspirin 81 mg was initiated at this time. The patient continued physical therapy throughout the hospitalization. The distance walked and range of motion improved throughout the hospitalization. The patient was discharged on postoperative day 2 with the disposition being to home with home health care. An appointment for follow-up was made prior to admission. Pt Condition on Discharge: Good Discharge Disposition: Disch w/ Home Health Serv Discharge Instructions Diet Instructions: As Tolerated, No Restrictions Activities You Can Perform: Full Weight Bearing, Shower Only-No Bath Activities to Avoid: Lifting/Bending, Strenuous Activity, Bathing, Driving Follow up Referrals: Orthopedics with Jennifer Tovar MD ([place]) SNF/[facility]/ with [facility] New Medications: Aspirin DR (Aspirin DR) 81 Mg Tabdr 81 MG PO BID for Prevent Blood Clot for 30 Days, #60 TAB Hydrocodone/Acetaminophen (Hydrocodone-Acetamin 7.5-325) 7.5 Mg-325 Mg Tablet 1 TAB PO Q4H PRN for PAIN SCALE 1 TO 10, #30 TAB Continued Medications: Cholecalciferol (Vitamin D3) 1,000 Unit Tab 1000 UNITS PO DAILY for Nutritional Supplement, #1 BOTTLE 0 Refills Multiple Vitamin (Multi-Vitamin Daily) 1 Tab Tab 1 TAB PO DAILY for Nutritional Supplement, TAB 0 Refills Simethicone (Simethicone) 125 Mg Cap 125 MG PO BID, CAP 0 Refills Jennifer Tovar MD ([place]) September 27, 2017 07:51
[2017-09-27 08:00] VITALS: BP 134/63; PULSE 78; RESP 18; TEMP 98.6; O2SAT 97
[2017-09-27] MEDS: DOCUSATE SODIUM 100 MG CAP PO SCH (08:02)
[2017-09-27] MEDS: SIMETHICONE 125 MG CHEWABLE TAB PO SCH (08:02)
[2017-09-27] MEDS: ASPIRIN EC 81 MG TABEC PO SCH (08:03)
[2017-09-27] MEDS: CHOLECALCIFEROL (VIT D3) 1000 UNIT TAB PO SCH (08:03)
[2017-09-27] MEDS: MULTIVITAMIN TAB PO SCH (08:03)
== END 2017-09-27 10:30 | disposition home health service (06) | DRG 470 ==
LOC: HSDI 05:24 → N06B 10:59
PROVIDERS: ADMIT Orthopaedic Surgery; ATTEND Orthopaedic Surgery
PROC: 0SR902A Replacement of Right Hip Joint with Metal on Polyethylene Synthetic Substitute, Uncemented, Open Approach (ICD-10-PCS; principal; 2017-09-25 06:43)
DX: M16.11 Unilateral primary osteoarthritis, right hip (principal); K31.84 Gastroparesis; I10 Essential (primary) hypertension; E78.5 Hyperlipidemia, unspecified; R55 Syncope and collapse; Z85.828 Personal history of other malignant neoplasm of skin; Z85.42 Personal history of malignant neoplasm of other parts of uterus
CPT/HCPCS: 73502; 85014; 85018; 86850; 86900; 86901; 94150; C1776; C9290; J0131; J0690; J1100; J1580; J1885; J2175; J2250; J2405; J3010; J7120; L1830